=== PATIENT | female | born 1955 | race Caucasian/White ===

== ENCOUNTER 2016-05-15 17:03 | Inpatient (IN) | payer OTHER ==
[~2016-05-15] VITALS: Ht 172.7 cm; Wt 96.5 kg
[~2016-05-15 17:03] MED LIST: ACTOS15 MG PO; ADVAIR HFA120 INHALA IH; AMLODIPINE BESY10 MG PO; ASPIR 8181 M1 PO; ATORVASTATIN CA80 MG PO; Aspirin E.C. PO; BYSTOLIC10 MG PO; CILOSTAZOL50 MG PO; CLEOCIN300 MG PO; CLOPIDOGREL75 MG PO; CYANOCOBAL1000 MCG/2 IM; CYANOCOBALAM1000 MCG PO; DESYREL100 MG PO; EFFIENT10 MG PO; Ecotrin PO; Effient PO; FERROUS SULFAT325 MG PO; FOLIC ACID1 MG PO; FUROSEMIDE20 MG PO; FUROSEMIDE40 MG PO; Feosol PO; GABAPENTIN300 MG PO; IMDUR30 MG PO; IMDUR60 MG PO; Imdur PO; K-DUR20 MEQ PO; KEFLEX500 MG PO; KLOR-CON M2020 MEQ PO; LANTUS 10100 UNITS/ SC; LANTUS 3 M100 UNITS1 SC; LASIX20 MG PO; LASIX40 MG PO; LEVEMIR FL100 UNITS/ PO; LEVEMIR100 UNIT/2 SC; LIPITOR80 MG PO; LISINOPRIL10 MG PO; LISINOPRIL30 MG PO; LOPRESSOR25 MG PO; LOPRESSOR50 MG PO; LOW DOSE ASPIRI81 M1 PO; Lasix PO; Lipitor PO; Lopressor PO; METOCLOPRAMIDE H5 MG PO; METOPROLOL TART50 MG PO; MORPHINE SULFAT15 M1 PO; MS Contin,Oramorph S PO; MYCOSTATIN1 APPLICAT TP; NEURONTIN300 MG PO; NITROGLYCERIN0.4 MG SL; NITROSTAT0.4 MG SL; NOVOLOG 10100 UNITS/ SC; NOVOLOG MI100 UNIT/2 SQ; NOVOLOG PE100 UNITS/ SC; Nitrostat,NitroQuick SL; PANTOPRAZOLE SO40 MG PO; PIOGLITAZONE HC15 MG PO; PLAVIX75 MG PO; PROAIR HFA8.5 GM IH; PROVENTIL HFA6.7 GM IH; PROZAC40 MG PO; PROzac PO; Percocet 5/325,Endoc PO; Plavix PO; Proventil,Ventolin H IH; RANEXA500 MG PO; RANITIDINE HCL300 M1 PO; REGLAN5 MG PO; SENNA PLUS TAB1 EACH PO; SENNA8.6 MG PO; SPIRIVA RESPIMAT4 G1 IH; SPIRIVA RESPIMAT4 GM IH; TRAMADOL HCL50 MG PO; TRAZODONE HCL100 MG PO; TYLENOL REGULA325 MG PO; ULTRAM50 MG PO; Ultram PO; ZESTRIL,PRINIVI40 MG PO; ZESTRIL20 MG PO; ZOCOR80 M1 PO; ZOFRAN ODT8 MG PO; Zestril,Prinivil PO; [UNRECOGNIZED DRUG - OTHER] TP; [UNRECOGNIZED DRUG - REMARK]
[2016-05-15 18:00] LABS: EOSINOPHIL (%) 2.4 % (0-5); EOSINOPHIL COUNT 0.3 K/uL (0-0.3); IMMATURE GRANULOCYTE (%) 0.2 % (0.0-0.7); IMMATURE GRANULOCYTE COUNT 0.2 K/uL; LYMPHOCYTE COUNT 1.2 K/uL (1.0-2.8); MCH 28.9 PG (29.0-34.0); MCHC 32.1 G/DL (30.0-36.0); MEAN PLAT.VOLUME 9.5 uM^3 (9.5-12.4); MONOCYTE (%) 9.6 % (3-12); MONOCYTE COUNT 1.2 K/uL (0-0.8); NEUTROPHIL (%) 78.4 % (45-76); NEUTROPHIL COUNT 9.8 K/uL (1.8-6.4); PLATELET COUNT 386 K/uL (156-360); RBC DIS.WIDTH-CV 14.8 % (11.8-14.6); RED BLOOD COUNT 4.22 M/uL (3.80-5.20); WHITE BLOOD COUNT 12.5 K/uL (4.1-10.2)
[2016-05-15 18:06] LABS: CHLORIDE 101 mEq/L (99-109); SODIUM 138 mEq/L (136-147)
[2016-05-15 18:08] LABS: GLUCOSE 128 mg/dL (70-99)
[2016-05-15 18:09] LABS: ANION GAP 12 MEQ/L (2-14)
[2016-05-15 18:12] LABS: GFR ESTIMATE (CALCULATED) > 59 mL/min/; UREA NITROGEN (BUN) 10 mg/dL (9-23)
[2016-05-15] MEDS ORDERED: K-DUR20 MEQ PO (18:52)
[2016-05-15] MEDS ORDERED: IMDUR30 MG PO (18:52)
[2016-05-15] MEDS ORDERED: NOVOLOG PE100 UNITS/ SC (18:53)
[2016-05-15] MEDS ORDERED: FUROSEMIDE40 MG PO (18:53)
[2016-05-15 23:36] VITALS: BP 139/92
[2016-05-16 00:01] LABS: POINT-OF-CARE METER ID UU13113717
[2016-05-16 05:56] LABS: POINT-OF-CARE METER ID UU13113717
[2016-05-16 06:36] LABS: EOSINOPHIL (%) 3.1 % (0-5); EOSINOPHIL COUNT 0.4 K/uL (0-0.3); HEMATOCRIT 36.1 % (36.0-46.0); IMMATURE GRANULOCYTE (%) 0.3 % (0.0-0.7); LYMPHOCYTE COUNT 1.6 K/uL (1.0-2.8); MCH 28.9 PG (29.0-34.0); MCHC 31.6 G/DL (30.0-36.0); MCV 91.4 FL (83-99); MEAN PLAT.VOLUME 9.8 uM^3 (9.5-12.4); MONOCYTE (%) 8.8 % (3-12); NEUTROPHIL (%) 73.1 % (45-76); NEUTROPHIL COUNT 8.1 K/uL (1.8-6.4); PLATELET COUNT 323 K/uL (156-360); RBC DIS.WIDTH-CV 15.2 % (11.8-14.6); RED BLOOD COUNT 3.95 M/uL (3.80-5.20); WHITE BLOOD COUNT 11.1 K/uL (4.1-10.2)
[2016-05-16 07:04] LABS: ANION GAP 7 MEQ/L (2-14); C-REACTIVE PROTEIN 39.8 MG/L (0-10); CHLORIDE 101 MEQ/L (99-109); GFR ESTIMATE (CALCULATED) 53 mL/min/; GLUCOSE 108 mg/dL (70-99); POTASSIUM 3.9 MEQ/L (3.7-5.4); SAMPLE HEMOLYSIS CHECK 0; SAMPLE ICTERIC CHECK 0; SAMPLE LIPEMIA CHECK 0; SODIUM 135 MEQ/L (136-147); UREA NITROGEN (BUN) 13 mg/dL (9-23)
[2016-05-16 07:43] LABS: ERTH.SED.RATE 91 MM/HR (0-30)
[2016-05-16 08:16] VITALS: BP 143/67
[2016-05-16 08:56] VITALS: BP 143/67
[2016-05-16 15:43] VITALS: BP 151/62
[2016-05-16 17:12] LABS: POINT-OF-CARE METER ID UU13113725
[2016-05-16 21:14] LABS: POINT-OF-CARE METER ID UU13113717
[2016-05-16 23:15] VITALS: BP 148/67
[2016-05-17 05:48] LABS: POINT-OF-CARE METER ID UU13113725
[2016-05-17 08:27] LABS: POINT-OF-CARE METER ID UU13113696
[2016-05-17 08:29] VITALS: BP 233/98
[2016-05-17 09:08] LABS: POINT-OF-CARE METER ID UU13113696
[2016-05-17 11:00] LABS: POINT-OF-CARE METER ID UU13113819
[2016-05-17 15:06] LABS: POINT-OF-CARE METER ID UU13113819
[2016-05-17 15:40] VITALS: BP 221/106
[2016-05-17 16:34] LABS: POINT-OF-CARE METER ID UU13113725
[2016-05-17 21:11] LABS: POINT-OF-CARE METER ID UU13113725
[2016-05-17 22:57] VITALS: BP 136/100
[2016-05-18 06:06] LABS: POINT-OF-CARE METER ID UU13113717
[2016-05-18 08:00] VITALS: BP 162/91
[2016-05-18 11:49] LABS: POINT-OF-CARE METER ID UU13113725
[2016-05-18 16:00] VITALS: BP 181/79
[2016-05-18 16:07] LABS: POINT-OF-CARE METER ID UU13113717
[2016-05-18 20:43] LABS: POINT-OF-CARE METER ID UU13113717
[2016-05-18 23:20] VITALS: BP 169/81
[2016-05-19 05:48] LABS: POINT-OF-CARE METER ID UU13113717
[2016-05-19 08:30] VITALS: BP 166/101
[2016-05-19 11:38] LABS: POINT-OF-CARE METER ID UU13113717
[2016-05-19 11:52] VITALS: BP 200/115
[2016-05-19 13:50] VITALS: BP 198/93
[2016-05-19 15:51] LABS: POINT-OF-CARE METER ID UU13113717
[2016-05-19 16:15] VITALS: BP 155/89
[2016-05-19 17:55] VITALS: BP 177/80
[2016-05-19 18:44] LABS: VANCOMYCIN, TROUGH 25.3 MCG/ML (10-20)
[2016-05-20] VITALS: BP 122/74
[2016-05-20 06:42] LABS: HEMATOCRIT 31.6 % (36.0-46.0); MCV 90.8 FL (83-99); MEAN PLAT.VOLUME 9.7 uM^3 (9.5-12.4); PLATELET COUNT 332 K/uL (156-360); RBC DIS.WIDTH-CV 15.3 % (11.8-14.6); RBC DIS.WIDTH-SD 50.6 % (39-53); RED BLOOD COUNT 3.48 M/uL (3.80-5.20); WHITE BLOOD COUNT 10.7 K/uL (4.1-10.2)
[2016-05-20 07:15] LABS: ANION GAP 9 MEQ/L (2-14); CHLORIDE 103 MEQ/L (99-109); GFR ESTIMATE (CALCULATED) 53 mL/min/; GLUCOSE 56 mg/dL (70-99); MAGNESIUM 1.8 mg/dl (1.3-2.7); POTASSIUM 4.6 MEQ/L (3.7-5.4); SAMPLE HEMOLYSIS CHECK 0; SAMPLE ICTERIC CHECK 0; SAMPLE LIPEMIA CHECK 0; SODIUM 137 MEQ/L (136-147); UREA NITROGEN (BUN) 15 mg/dL (9-23)
[2016-05-20 07:24] LABS: VANCOMYCIN, TROUGH 21.1 MCG/ML (10-20)
[2016-05-20 08:11] VITALS: BP 146/78
[2016-05-20 11:23] LABS: POINT-OF-CARE METER ID UU13113725
[2016-05-20] MEDS ORDERED: AUGMENTIN875 MG PO (12:08)
[2016-05-20] MEDS ORDERED: BETADINE SOLUT480 ML TP (12:08)
== END 2016-05-20 15:33 | disposition home or self-care (01) | DRG 253 ==
LOC: EME → EDBD 17:03 → 5EAST 21:35 → EDOF 21:35 → 5EAST 23:04
PROVIDERS: Emergency Medicine; Hospitalist; Internal Medicine
PROC: 047M3ZZ Dilation of Right Popliteal Artery, Percutaneous Approach (ICD-10-PCS; principal; 2016-05-17)
PROC: 047P3ZZ Dilation of Right Anterior Tibial Artery, Percutaneous Approach (ICD-10-PCS; principal; 2016-05-17)
PROC: 047R3ZZ Dilation of Right Posterior Tibial Artery, Percutaneous Approach (ICD-10-PCS; principal; 2016-05-17)
DX: I70.261 Atherosclerosis of native arteries of extremities with gangrene, right leg (principal); M86.171 Other acute osteomyelitis, right ankle and foot; I50.30 Unspecified diastolic (congestive) heart failure; E11.52 Type 2 diabetes mellitus with diabetic peripheral angiopathy with gangrene; L03.031 Cellulitis of right toe; E11.40 Type 2 diabetes mellitus with diabetic neuropathy, unspecified; F32.9 Major depressive disorder, single episode, unspecified; J44.9 Chronic obstructive pulmonary disease, unspecified; E78.5 Hyperlipidemia, unspecified; I05.0 Rheumatic mitral stenosis; G89.4 Chronic pain syndrome; I25.2 Old myocardial infarction; L97.519 Non-pressure chronic ulcer of other part of right foot with unspecified severity; I27.2 Other secondary pulmonary hypertension; I35.0 Nonrheumatic aortic (valve) stenosis; I25.10 Atherosclerotic heart disease of native coronary artery without angina pectoris; Z89.512 Acquired absence of left leg below knee; G43.909 Migraine, unspecified, not intractable, without status migrainosus; Z85.528 Personal history of other malignant neoplasm of kidney; Z87.891 Personal history of nicotine dependence; Z95.5 Presence of coronary angioplasty implant and graft; Z89.421 Acquired absence of other right toe(s)
CPT/HCPCS: 73630; 80048; 80202; 82565; 82948; 83605; 83735; 84520; 85025; 85027; 85651; 86140; 87040; 94640 76; 94799; 99202; 99281; 99285; C1725; C1760; C1769; C1887; C1894; G0008; J0360; J0692; J1644; J1815; J1885; J2250; J2405; J2543; J2720; J3010; J3370; J7030; J7050; S0020

== ENCOUNTER 2016-05-27 21:13 | Emergency (ER) | payer OTHER ==
[~2016-05-27] VITALS: Ht 165.1 cm; Wt 94.5 kg
[~2016-05-27 21:13] MED LIST changes: +AUGMENTIN875 MG PO; +BETADINE SOLUT480 ML TP
[2016-05-27 23:51] VITALS: BP 178/50
== END 2016-05-27 23:53 | disposition home or self-care (01) ==
LOC: EME 21:13
DX: L24.9 Irritant contact dermatitis, unspecified cause (principal); E11.9 Type 2 diabetes mellitus without complications; E78.5 Hyperlipidemia, unspecified; I10 Essential (primary) hypertension; I25.2 Old myocardial infarction; Z89.411 Acquired absence of right great toe; Z88.2 Allergy status to sulfonamides
CPT/HCPCS: 99281; 99284

== ENCOUNTER 2016-05-29 12:02 | Inpatient (IN) | payer OTHER ==
[~2016-05-29] VITALS: Ht 172.7 cm; Wt 94.0 kg
[2016-05-29 12:44] LABS: HEMATOCRIT 33.9 % (36.0-46.0); MCH 29.5 PG (29.0-34.0); MCV 95.2 FL (83-99); MEAN PLAT.VOLUME 9.5 uM^3 (9.5-12.4); PLATELET COUNT 413 K/uL (156-360); RBC DIS.WIDTH-CV 17.5 % (11.8-14.6); RBC DIS.WIDTH-SD 55.6 % (39-53); RED BLOOD COUNT 3.56 M/uL (3.80-5.20); WHITE BLOOD COUNT 9.6 K/uL (4.1-10.2)
[2016-05-29 12:54] LABS: CHLORIDE 103 mEq/L (99-109); POTASSIUM 5.1 mEq/L (3.7-5.4); SODIUM 134 mEq/L (136-147)
[2016-05-29 12:56] LABS: GLUCOSE 215 mg/dL (70-99)
[2016-05-29 12:57] LABS: ANION GAP 11 MEQ/L (2-14)
[2016-05-29 13:00] LABS: GFR ESTIMATE (CALCULATED) 48 mL/min/
[2016-05-29 13:01] LABS: UREA NITROGEN (BUN) 11 mg/dL (9-23)
[2016-05-29 13:04] LABS: TROP-I INTERPRETATION POSITIVE
[2016-05-29 13:06] LABS: TROPONIN-I 0.66 ng/mL (0.0-0.30)
[2016-05-29] MEDS ORDERED: BETADINE SOLUT480 ML TP (13:47)
[2016-05-29] MEDS ORDERED: HYDROCODON-ACE1 EAC7 PO (13:48)
[2016-05-29 15:19] VITALS: BP 186/80
[2016-05-29 18:02] LABS: POINT-OF-CARE METER ID UU14174216
[2016-05-29 20:26] VITALS: BP 161/70
[2016-05-29 20:58] LABS: POINT-OF-CARE METER ID UU13113781
[2016-05-29 22:56] VITALS: BP 128/80
[2016-05-30 02:22] LABS: INTER. NORMALIZED RATIO 1.3; PROTHROMBIN TIME 13.3 (9.2-11.2)
[2016-05-30 02:28] LABS: TROP-I INTERPRETATION INDETERMINATE; TROPONIN-I 0.55 ng/mL (0.0-0.30)
[2016-05-30 03:38] VITALS: BP 152/67
[2016-05-30 08:40] VITALS: BP 172/88
[2016-05-30 11:02] VITALS: BP 161/74
[2016-05-30 11:13] LABS: POINT-OF-CARE METER ID UU13113698
[2016-05-30 15:30] VITALS: BP 130/69
[2016-05-30 16:18] LABS: POINT-OF-CARE METER ID UU13113698
[2016-05-30 19:48] VITALS: BP 132/83
[2016-05-30 21:21] LABS: POINT-OF-CARE METER ID UU13113781
[2016-05-31] VITALS: BP 144/72
[2016-05-31 04:00] VITALS: BP 154/81
[2016-05-31 06:26] LABS: MCH 29.2 PG (29.0-34.0); MCHC 30.6 G/DL (30.0-36.0); MCV 95.2 FL (83-99); PLATELET COUNT 340 K/uL (156-360); RBC DIS.WIDTH-CV 17.4 % (11.8-14.6); RBC DIS.WIDTH-SD 59.8 % (39-53); RED BLOOD COUNT 3.36 M/uL (3.80-5.20)
[2016-05-31 07:34] VITALS: BP 139/78
[2016-05-31 07:52] LABS: POINT-OF-CARE METER ID UU13113781
[2016-05-31 08:38] LABS: POTASSIUM 4.9 MEQ/L (3.7-5.4)
[2016-05-31 12:10] VITALS: BP 13/81; BP 130/81
[2016-05-31 12:32] LABS: POINT-OF-CARE METER ID UU13113781
[2016-05-31 15:00] VITALS: BP 136/79
[2016-05-31 16:30] LABS: POINT-OF-CARE METER ID UU13113781
[2016-05-31 20:00] VITALS: BP 131/87
[2016-06-01] VITALS: BP 140/81
[2016-06-01 04:00] VITALS: BP 134/80
[2016-06-01 08:01] LABS: POINT-OF-CARE METER ID UU13113698
[2016-06-01 09:00] VITALS: BP 168/71
[2016-06-01 11:32] LABS: ANION GAP 6 MEQ/L (2-14); CHLORIDE 99 MEQ/L (99-109); POTASSIUM 4.5 MEQ/L (3.7-5.4); SAMPLE HEMOLYSIS CHECK 0; SAMPLE ICTERIC CHECK 0; SAMPLE LIPEMIA CHECK 0; SODIUM 132 MEQ/L (136-147)
[2016-06-01 11:37] LABS: GFR ESTIMATE (CALCULATED) 53 mL/min/; GLUCOSE 157 mg/dL (70-99); UREA NITROGEN (BUN) 14 mg/dL (9-23)
[2016-06-01 12:10] LABS: POINT-OF-CARE METER ID UU13113698
[2016-06-01 15:26] VITALS: BP 118/71
[2016-06-01 17:00] LABS: POINT-OF-CARE METER ID UU14174216
[2016-06-01 20:00] VITALS: BP 150/66
[2016-06-02] VITALS: BP 129/73
[2016-06-02 04:00] VITALS: BP 135/76
[2016-06-02 08:21] LABS: POINT-OF-CARE METER ID UU13113781
[2016-06-02 08:37] VITALS: BP 178/80
[2016-06-02 09:19] LABS: HEMATOCRIT 34.1 % (36.0-46.0); MCH 29.4 PG (29.0-34.0); MCHC 31.4 G/DL (30.0-36.0); MCV 93.7 FL (83-99); MEAN PLAT.VOLUME 9.6 uM^3 (9.5-12.4); PLATELET COUNT 306 K/uL (156-360); RBC DIS.WIDTH-CV 16.7 % (11.8-14.6); RBC DIS.WIDTH-SD 57.4 % (39-53); RED BLOOD COUNT 3.64 M/uL (3.80-5.20); WHITE BLOOD COUNT 7.1 K/uL (4.1-10.2)
[2016-06-02 09:44] LABS: ANION GAP 6 MEQ/L (2-14); CHLORIDE 99 MEQ/L (99-109); GFR ESTIMATE (CALCULATED) 53 mL/min/; GLUCOSE 148 mg/dL (70-99); POTASSIUM 4.6 MEQ/L (3.7-5.4); SAMPLE HEMOLYSIS CHECK 0; SAMPLE ICTERIC CHECK 0; SAMPLE LIPEMIA CHECK 0; SODIUM 134 MEQ/L (136-147); UREA NITROGEN (BUN) 17 mg/dL (9-23)
[2016-06-02 11:48] LABS: POINT-OF-CARE METER ID UU13113781
[2016-06-02] MEDS ORDERED: AMLODIPINE BESY10 MG PO (11:55)
[2016-06-02] MEDS ORDERED: HYDROCHLOROTHIA25 MG PO (11:57)
[2016-06-02] MEDS ORDERED: VALSARTAN320 MG PO (11:59)
[2016-06-02 13:02] VITALS: BP 136/80
== END 2016-06-02 17:15 | disposition home or self-care (01) | DRG 280 ==
LOC: EME 12:02 → EDOF 13:14 → 4EAST 13:14 → EDOF 13:52 → 4EAST 15:07
PROVIDERS: Internal Medicine; Internal Medicine Cardiovascular Disease; Physician Assistant
DX: I21.4 Non-ST elevation (NSTEMI) myocardial infarction (principal); E87.1 Hypo-osmolality and hyponatremia; I16.1 Hypertensive emergency; I50.33 Acute on chronic diastolic (congestive) heart failure; I96 Gangrene, not elsewhere classified; L97.909 Non-pressure chronic ulcer of unspecified part of unspecified lower leg with unspecified severity; I25.10 Atherosclerotic heart disease of native coronary artery without angina pectoris; I11.0 Hypertensive heart disease with heart failure; E11.21 Type 2 diabetes mellitus with diabetic nephropathy; I45.10 Unspecified right bundle-branch block; I25.2 Old myocardial infarction; E78.5 Hyperlipidemia, unspecified; G89.29 Other chronic pain; F32.9 Major depressive disorder, single episode, unspecified; Z89.512 Acquired absence of left leg below knee; Z88.2 Allergy status to sulfonamides; Z95.5 Presence of coronary angioplasty implant and graft; Z79.4 Long term (current) use of insulin; I16.0 Hypertensive urgency; K59.00 Constipation, unspecified; I73.9 Peripheral vascular disease, unspecified; I27.2 Other secondary pulmonary hypertension; R05 Cough; I35.0 Nonrheumatic aortic (valve) stenosis
CPT/HCPCS: 71020; 80048; 82565; 82948; 83880; 84132; 84484; 84520; 85027; 85610; 85730; 93005; 93306; 94640; 94640 76; 94799; 99281; 99285; J1650; J1815; J1940

== ENCOUNTER 2016-06-12 09:21 | Day surgery (SDC) | payer OTHER ==
[~2016-06-12] VITALS: Ht 172.7 cm; Wt 93.0 kg
[~2016-06-12 09:21] MED LIST changes: +HYDROCHLOROTHIA25 MG PO; +HYDROCODON-ACE1 EAC7 PO; +VALSARTAN320 MG PO
[2016-06-12 10:30] VITALS: BP 143/89; BP 221/100
[2016-06-12 10:48] LABS: POINT-OF-CARE METER ID UU14174212
[2016-06-12 17:50] VITALS: BP 146/92
[2016-06-12 20:30] VITALS: BP 159/74
[2016-06-12 23:30] VITALS: BP 184/82
[2016-06-13 03:40] VITALS: BP 188/86
[2016-06-13 07:00] VITALS: BP 170/108
[2016-06-13] MEDS ORDERED: HYDROCODON-ACE1 EAC7 PO (09:15)
[2016-06-13 11:37] VITALS: BP 160/90
== END 2016-06-13 15:05 | disposition home or self-care (01) ==
LOC: SDC 09:21 → 2SOUTH 15:06 → 2EAST 15:06 → SDC 15:24 → 2EAST 17:38
PROVIDERS: Surgery
PROC: 0Y6M0Z7 Detachment at Right Foot, Complete 4th Ray, Open Approach (ICD-10-PCS; principal; 2016-06-12)
DX: E11.52 Type 2 diabetes mellitus with diabetic peripheral angiopathy with gangrene (principal); M86.171 Other acute osteomyelitis, right ankle and foot; I70.261 Atherosclerosis of native arteries of extremities with gangrene, right leg; R11.2 Nausea with vomiting, unspecified; E11.42 Type 2 diabetes mellitus with diabetic polyneuropathy; E11.622 Type 2 diabetes mellitus with other skin ulcer; L97.419 Non-pressure chronic ulcer of right heel and midfoot with unspecified severity; Z79.01 Long term (current) use of anticoagulants; Z79.02 Long term (current) use of antithrombotics/antiplatelets; Z99.3 Dependence on wheelchair; I10 Essential (primary) hypertension; I25.2 Old myocardial infarction; E78.5 Hyperlipidemia, unspecified; Z79.891 Long term (current) use of opiate analgesic; K21.9 Gastro-esophageal reflux disease without esophagitis; E66.9 Obesity, unspecified; Z89.512 Acquired absence of left leg below knee; Z87.891 Personal history of nicotine dependence; Z83.3 Family history of diabetes mellitus; Z82.49 Family history of ischemic heart disease and other diseases of the circulatory system; Z80.3 Family history of malignant neoplasm of breast; Z80.8 Family history of malignant neoplasm of other organs or systems; Z79.4 Long term (current) use of insulin
CPT/HCPCS: 82948; 88305; 88311; 94640; 94640 76; 99202; G0378; J0330; J0690; J1100; J1170; J1650; J1815; J2250; J2270; J2405; J3010; J7120

== ENCOUNTER 2016-06-20 21:51 | Inpatient (IN) | payer OTHER ==
[~2016-06-20] VITALS: Ht 172.7 cm; Wt 83.0 kg
[2016-06-20 23:19] LABS: HEMATOCRIT 34.9 % (36.0-46.0); MCH 28.6 PG (29.0-34.0); MCHC 32.7 G/DL (30.0-36.0); MCV 87.5 FL (83-99); MEAN PLAT.VOLUME 9.2 uM^3 (9.5-12.4); PLATELET COUNT 546 K/uL (156-360); RBC DIS.WIDTH-CV 14.2 % (11.8-14.6); RBC DIS.WIDTH-SD 44.8 % (39-53); RED BLOOD COUNT 3.99 M/uL (3.80-5.20); WHITE BLOOD COUNT 17.4 K/uL (4.1-10.2)
[2016-06-20 23:24] LABS: CHLORIDE 99 mEq/L (99-109); POTASSIUM 3.5 mEq/L (3.7-5.4); SODIUM 133 mEq/L (136-147)
[2016-06-20 23:26] LABS: GLUCOSE 282 mg/dL (70-99)
[2016-06-20 23:27] LABS: ANION GAP 12 MEQ/L (2-14)
[2016-06-20 23:29] LABS: GFR ESTIMATE (CALCULATED) 37 mL/min/
[2016-06-20 23:30] LABS: UREA NITROGEN (BUN) 15 mg/dL (9-23)
[2016-06-21] MEDS ORDERED: AMLODIPINE BESYL5 MG PO (00:54)
[2016-06-21] MEDS ORDERED: VALSARTAN320 MG PO (00:54)
[2016-06-21] MEDS ORDERED: METOCLOPRAMIDE H5 MG PO ×2 (00:55→00:56)
[2016-06-21] MEDS ORDERED: FUROSEMIDE40 MG PO (00:55)
[2016-06-21] MEDS ORDERED: ULTRAM50 MG PO (00:57)
[2016-06-21] MEDS ORDERED: CLINDAMYCIN HC300 MG PO (00:57)
[2016-06-21 03:32] VITALS: BP 98/64
[2016-06-21 09:06] VITALS: BP 102/64
[2016-06-21 11:03] LABS: ANION GAP 11 MEQ/L (2-14); CHLORIDE 99 MEQ/L (99-109); GFR ESTIMATE (CALCULATED) 37 mL/min/; GLUCOSE 255 mg/dL (70-99); POTASSIUM 3.6 MEQ/L (3.7-5.4); SAMPLE HEMOLYSIS CHECK 0; SAMPLE ICTERIC CHECK 0; SAMPLE LIPEMIA CHECK 0; SODIUM 134 MEQ/L (136-147); UREA NITROGEN (BUN) 19 mg/dL (9-23)
[2016-06-21 11:21] LABS: HEMATOCRIT 28.5 % (36.0-46.0); MCH 28.6 PG (29.0-34.0); MCHC 32.6 G/DL (30.0-36.0); MCV 87.7 FL (83-99); MEAN PLAT.VOLUME 9.9 uM^3 (9.5-12.4); PLATELET COUNT 407 K/uL (156-360); RBC DIS.WIDTH-CV 14.6 % (11.8-14.6); RED BLOOD COUNT 3.25 M/uL (3.80-5.20); WHITE BLOOD COUNT 13.5 K/uL (4.1-10.2)
[2016-06-21 11:53] LABS: POINT-OF-CARE METER ID UU13113725
[2016-06-21 16:14] VITALS: BP 92/60
[2016-06-21 17:14] LABS: MAGNESIUM 1.5 mg/dl (1.3-2.7)
[2016-06-22 07:23] VITALS: BP 95/58
[2016-06-22 11:52] LABS: POINT-OF-CARE METER ID UU13113725
[2016-06-22 15:48] VITALS: BP 130/61
[2016-06-22 16:38] LABS: POINT-OF-CARE METER ID UU13113725
[2016-06-22 21:38] LABS: POINT-OF-CARE METER ID UU13113725
[2016-06-22 23:01] VITALS: BP 130/64
[2016-06-23 06:58] LABS: ANION GAP 5 MEQ/L (2-14); CHLORIDE 104 MEQ/L (99-109); GFR ESTIMATE (CALCULATED) 40 mL/min/; GLUCOSE 167 mg/dL (70-99); MAGNESIUM 1.6 mg/dl (1.3-2.7); SAMPLE HEMOLYSIS CHECK 0; SAMPLE ICTERIC CHECK 0; SAMPLE LIPEMIA CHECK 0; SODIUM 133 MEQ/L (136-147); UREA NITROGEN (BUN) 19 mg/dL (9-23)
[2016-06-23 06:59] LABS: POTASSIUM 4.9 MEQ/L (3.7-5.4)
[2016-06-23 07:21] LABS: HEMATOCRIT 22.3 % (36.0-46.0); MCH 28.2 PG (29.0-34.0); MCHC 31.4 G/DL (30.0-36.0); MCV 89.9 FL (83-99); MEAN PLAT.VOLUME 9.3 uM^3 (9.5-12.4); PLATELET COUNT 332 K/uL (156-360); RBC DIS.WIDTH-CV 15.1 % (11.8-14.6); RBC DIS.WIDTH-SD 49.4 % (39-53); WHITE BLOOD COUNT 11.3 K/uL (4.1-10.2)
[2016-06-23 07:23] LABS: RED BLOOD COUNT 2.48 M/uL (3.80-5.20)
[2016-06-23 08:00] VITALS: BP 114/67
[2016-06-23 14:21] VITALS: BP 110/51
[2016-06-23 22:30] VITALS: BP 172/74
[2016-06-24 03:16] LABS: VANCOMYCIN, TROUGH 17.8 MCG/ML (10-20)
[2016-06-24 05:49] LABS: POINT-OF-CARE METER ID UU13113725
[2016-06-24 07:43] VITALS: BP 130/76
[2016-06-24 08:00] VITALS: BP 128/88
[2016-06-24 08:32] LABS: HEMATOCRIT 29.4 % (36.0-46.0); MCH 28.7 PG (29.0-34.0); MCV 89.9 FL (83-99); MEAN PLAT.VOLUME 9.3 uM^3 (9.5-12.4); PLATELET COUNT 352 K/uL (156-360); RBC DIS.WIDTH-CV 15.1 % (11.8-14.6); RBC DIS.WIDTH-SD 49.2 % (39-53); WHITE BLOOD COUNT 13.2 K/uL (4.1-10.2)
[2016-06-24 08:36] LABS: ALKALINE PHOSPHATASE 110 IU/L (3-129); ANION GAP 7 MEQ/L (2-14); CHLORIDE 106 MEQ/L (99-109); GFR ESTIMATE (CALCULATED) 40 mL/min/; GLUCOSE 113 mg/dL (70-99); POTASSIUM 4.9 MEQ/L (3.7-5.4); PREALBUMIN 7.3 mg/dL (10-40); SAMPLE HEMOLYSIS CHECK 0; SAMPLE ICTERIC CHECK 0; SAMPLE LIPEMIA CHECK 0; SODIUM 136 MEQ/L (136-147); TOTAL BILIRUBIN 0.3 MG/DL (0.0-1.0); UREA NITROGEN (BUN) 18 mg/dL (9-23)
[2016-06-24 08:55] LABS: RED BLOOD COUNT 3.27 M/uL (3.80-5.20)
[2016-06-24 11:34] LABS: POINT-OF-CARE METER ID UU13113725
[2016-06-24 14:32] LABS: POINT-OF-CARE METER ID UU13113675
[2016-06-24 16:41] VITALS: BP 134/89
[2016-06-24 23:01] VITALS: BP 150/74
[2016-06-25 06:51] LABS: EOSINOPHIL (%) 4.8 % (0-5); EOSINOPHIL COUNT 0.6 K/uL (0-0.3); HEMATOCRIT 25.2 % (36.0-46.0); IMMATURE GRANULOCYTE (%) 0.5 % (0.0-0.7); IMMATURE GRANULOCYTE COUNT 0.1 K/uL; LYMPHOCYTE COUNT 1.5 K/uL (1.0-2.8); MCH 28.5 PG (29.0-34.0); MCHC 31.7 G/DL (30.0-36.0); MCV 89.7 FL (83-99); MEAN PLAT.VOLUME 9.3 uM^3 (9.5-12.4); MONOCYTE (%) 5.4 % (3-12); MONOCYTE COUNT 0.7 K/uL (0-0.8); NEUTROPHIL (%) 77.6 % (45-76); NEUTROPHIL COUNT 9.9 K/uL (1.8-6.4); PLATELET COUNT 329 K/uL (156-360); RBC DIS.WIDTH-SD 49.1 % (39-53); RED BLOOD COUNT 2.81 M/uL (3.80-5.20); WHITE BLOOD COUNT 12.8 K/uL (4.1-10.2)
[2016-06-25 07:15] LABS: ANION GAP 7 MEQ/L (2-14); CHLORIDE 110 MEQ/L (99-109); GFR ESTIMATE (CALCULATED) 37 mL/min/; GLUCOSE 90 mg/dL (70-99); IRON 28 MCG/DL (35-150); POTASSIUM 4.8 MEQ/L (3.7-5.4); SAMPLE HEMOLYSIS CHECK 0; SAMPLE ICTERIC CHECK 0; SAMPLE LIPEMIA CHECK 0; SODIUM 137 MEQ/L (136-147); UREA NITROGEN (BUN) 15 mg/dL (9-23)
[2016-06-25 09:00] VITALS: BP 168/68
[2016-06-25 11:56] LABS: POINT-OF-CARE METER ID UU13113725
[2016-06-25 16:00] VITALS: BP 116/63
[2016-06-25 16:12] LABS: POINT-OF-CARE METER ID UU13113725
[2016-06-25 22:44] VITALS: BP 141/79
[2016-06-26 07:11] VITALS: BP 118/62
[2016-06-26 10:47] VITALS: BP 118/62
[2016-06-26 15:45] LABS: EOSINOPHIL (%) 3.4 % (0-5); EOSINOPHIL COUNT 0.6 K/uL (0-0.3); HEMATOCRIT 21.2 % (36.0-46.0); IMMATURE GRANULOCYTE (%) 0.8 % (0.0-0.7); IMMATURE GRANULOCYTE COUNT 0.1 K/uL; LYMPHOCYTE COUNT 1.2 K/uL (1.0-2.8); MCH 28.6 PG (29.0-34.0); MCHC 31.6 G/DL (30.0-36.0); MCV 90.6 FL (83-99); MEAN PLAT.VOLUME 9.2 uM^3 (9.5-12.4); MONOCYTE (%) 5.3 % (3-12); MONOCYTE COUNT 0.9 K/uL (0-0.8); NEUTROPHIL (%) 83.4 % (45-76); NEUTROPHIL COUNT 14.2 K/uL (1.8-6.4); PLATELET COUNT 368 K/uL (156-360); RBC DIS.WIDTH-CV 15.3 % (11.8-14.6); RBC DIS.WIDTH-SD 49.9 % (39-53); RED BLOOD COUNT 2.34 M/uL (3.80-5.20)
[2016-06-26 16:03] LABS: ANION GAP 7 MEQ/L (2-14); CHLORIDE 114 MEQ/L (99-109); POTASSIUM 5.3 MEQ/L (3.7-5.4); SAMPLE HEMOLYSIS CHECK 0; SAMPLE ICTERIC CHECK 0; SAMPLE LIPEMIA CHECK 0; SODIUM 138 MEQ/L (136-147)
[2016-06-26 16:09] LABS: GFR ESTIMATE (CALCULATED) 48 mL/min/; GLUCOSE 104 mg/dL (70-99); UREA NITROGEN (BUN) 11 mg/dL (9-23)
[2016-06-26 16:14] LABS: TROP-I INTERPRETATION NEGATIVE; TROPONIN-I 0.05 ng/mL (0.0-0.30)
[2016-06-26 19:55] VITALS: BP 132/60
[2016-06-26 23:06] VITALS: BP 104/65
[2016-06-26 23:20] LABS: POINT-OF-CARE METER ID UU13113725
[2016-06-27] VITALS (7 sets, daily range): BP systolic 87–151; BP diastolic 56–85
[2016-06-27 06:07] LABS: POINT-OF-CARE METER ID UU13113725
[2016-06-27 07:13] LABS: EOSINOPHIL COUNT 0.2 K/uL (0-0.3); HEMATOCRIT 27.9 % (36.0-46.0); IMMATURE GRANULOCYTE (%) 0.6 % (0.0-0.7); IMMATURE GRANULOCYTE COUNT 0.1 K/uL; LYMPHOCYTE COUNT 1.4 K/uL (1.0-2.8); MCH 29.2 PG (29.0-34.0); MCHC 32.3 G/DL (30.0-36.0); MCV 90.6 FL (83-99); MEAN PLAT.VOLUME 9.2 uM^3 (9.5-12.4); MONOCYTE (%) 7.1 % (3-12); MONOCYTE COUNT 1.5 K/uL (0-0.8); NEUTROPHIL (%) 84.6 % (45-76); NEUTROPHIL COUNT 17.7 K/uL (1.8-6.4); PLATELET COUNT 370 K/uL (156-360); RBC DIS.WIDTH-CV 15.9 % (11.8-14.6); RBC DIS.WIDTH-SD 51.3 % (39-53); WHITE BLOOD COUNT 20.9 K/uL (4.1-10.2)
[2016-06-27 07:15] LABS: RED BLOOD COUNT 3.08 M/uL (3.80-5.20)
[2016-06-27 07:36] LABS: TROP-I INTERPRETATION NEGATIVE; TROPONIN-I 0.08 ng/mL (0.0-0.30)
[2016-06-27 07:47] LABS: ANION GAP 9 MEQ/L (2-14); CHLORIDE 111 MEQ/L (99-109); GFR ESTIMATE (CALCULATED) 48 mL/min/; GLUCOSE 107 mg/dL (70-99); POTASSIUM 4.9 MEQ/L (3.7-5.4); SAMPLE HEMOLYSIS CHECK 0; SAMPLE ICTERIC CHECK 0; SAMPLE LIPEMIA CHECK 0; SODIUM 137 MEQ/L (136-147); UREA NITROGEN (BUN) 13 mg/dL (9-23)
[2016-06-27 07:49] LABS: VANCOMYCIN, TROUGH 28.6 MCG/ML (10-20)
[2016-06-27 16:21] LABS: POINT-OF-CARE METER ID UU13113725
[2016-06-27 20:54] LABS: POINT-OF-CARE METER ID UU13113725
[2016-06-28 00:35] VITALS: BP 124/58
[2016-06-28 06:24] LABS: NRBC (%) 0.3 /100 WBC (0-0)
[2016-06-28 06:36] LABS: EOSINOPHIL (%) 1.9 % (0-5); EOSINOPHIL COUNT 0.3 K/uL (0-0.3); HEMATOCRIT 24.7 % (36.0-46.0); IMMATURE GRANULOCYTE (%) 0.6 % (0.0-0.7); IMMATURE GRANULOCYTE COUNT 0.1 K/uL; LYMPHOCYTE COUNT 0.9 K/uL (1.0-2.8); MCH 29.5 PG (29.0-34.0); MCHC 32.8 G/DL (30.0-36.0); MCV 89.8 FL (83-99); MEAN PLAT.VOLUME 9.2 uM^3 (9.5-12.4); MONOCYTE (%) 10.5 % (3-12); MONOCYTE COUNT 1.5 K/uL (0-0.8); NEUTROPHIL (%) 80.9 % (45-76); NEUTROPHIL COUNT 11.6 K/uL (1.8-6.4); PLATELET COUNT 321 K/uL (156-360); RBC DIS.WIDTH-CV 16.3 % (11.8-14.6); RBC DIS.WIDTH-SD 52.3 % (39-53); RED BLOOD COUNT 2.75 M/uL (3.80-5.20)
[2016-06-28 06:49] LABS: ANION GAP 6 MEQ/L (2-14); CHLORIDE 110 MEQ/L (99-109); GFR ESTIMATE (CALCULATED) 37 mL/min/; POTASSIUM 4.7 MEQ/L (3.7-5.4); SAMPLE HEMOLYSIS CHECK 0; SAMPLE ICTERIC CHECK 0; SAMPLE LIPEMIA CHECK 0; SODIUM 136 MEQ/L (136-147); UREA NITROGEN (BUN) 14 mg/dL (9-23)
[2016-06-28 06:56] LABS: WHITE BLOOD COUNT 14.4 K/uL (4.1-10.2)
[2016-06-28 07:00] LABS: GLUCOSE 164 mg/dL (70-99); VANCOMYCIN, TROUGH 22.7 MCG/ML (10-20)
[2016-06-28 09:22] VITALS: BP 116/62
[2016-06-28 11:36] VITALS: BP 110/64
[2016-06-28 11:40] LABS: POINT-OF-CARE METER ID UU13113725
[2016-06-28 17:07] VITALS: BP 101/55
[2016-06-28 20:16] VITALS: BP 92/59
[2016-06-28 23:01] VITALS: BP 120/78
[2016-06-29 06:59] LABS: HEMATOCRIT 24.6 % (36.0-46.0); MCH 29.5 PG (29.0-34.0); MCHC 32.9 G/DL (30.0-36.0); MCV 89.5 FL (83-99); MEAN PLAT.VOLUME 9.1 uM^3 (9.5-12.4); NRBC (%) 0.2 /100 WBC (0-0); PLATELET COUNT 332 K/uL (156-360); RBC DIS.WIDTH-CV 16.4 % (11.8-14.6); RBC DIS.WIDTH-SD 51.7 % (39-53); RED BLOOD COUNT 2.75 M/uL (3.80-5.20); WHITE BLOOD COUNT 13.7 K/uL (4.1-10.2)
[2016-06-29 07:21] LABS: ANION GAP 8 MEQ/L (2-14); CHLORIDE 111 MEQ/L (99-109); GFR ESTIMATE (CALCULATED) 37 mL/min/; GLUCOSE 179 mg/dL (70-99); POTASSIUM 4.3 MEQ/L (3.7-5.4); SAMPLE HEMOLYSIS CHECK 0; SAMPLE ICTERIC CHECK 0; SAMPLE LIPEMIA CHECK 0; SODIUM 137 MEQ/L (136-147); UREA NITROGEN (BUN) 12 mg/dL (9-23)
[2016-06-29 07:27] LABS: EOSINOPHIL (%) 3.1 % (0-5); EOSINOPHIL COUNT 0.4 K/uL (0-0.3); IMMATURE GRANULOCYTE (%) 0.3 % (0.0-0.7); MONOCYTE (%) 8.6 % (3-12); MONOCYTE COUNT 1.2 K/uL (0-0.8); NEUTROPHIL (%) 80.9 % (45-76); NEUTROPHIL COUNT 11.1 K/uL (1.8-6.4)
[2016-06-29 07:43] VITALS: BP 140/100
[2016-06-29 11:52] LABS: POINT-OF-CARE METER ID UU13113725
[2016-06-29 13:01] LABS: TROP-I INTERPRETATION POSITIVE
[2016-06-29 13:04] LABS: TROPONIN-I 0.88 ng/mL (0.0-0.30)
[2016-06-29 16:31] LABS: POINT-OF-CARE METER ID UU14174216
[2016-06-29 16:37] LABS: INTER. NORMALIZED RATIO 1.3; PROTHROMBIN TIME 13.4 (9.2-11.2)
[2016-06-29 19:25] LABS: BASE EXCESS -10.9 mEq/L (-3 to +3); BICARBONATE 13.7 mEq/L (22-26); CARBOXY HGB 2.1 % (0-5); COMMENTS - BLOOD GASES A+C+; DEVICE NC; METHEMOGLOBIN 1.7 % (0-1.5); O2 FLOW 6 L/MIN; PCO2 26 mm Hg (35-45); PO2 78 mm Hg (80-100); SITE RR; TOTAL RESP RATE 25 resp/min; pH 7.33 (7.35-7.45)
[2016-06-29 19:53] LABS: MCV 90.4 FL (83-99)
[2016-06-29 19:58] VITALS: BP 159/89
[2016-06-29 20:09] LABS: TROP-I INTERPRETATION POSITIVE
[2016-06-29 20:10] LABS: TROPONIN-I 2.27 ng/mL (0.0-0.30)
[2016-06-29 20:15] LABS: CHLORIDE 111 mEq/L (99-109); SODIUM 135 mEq/L (136-147)
[2016-06-29 20:16] LABS: GLUCOSE 225 mg/dL (70-99)
[2016-06-29 20:18] LABS: ANION GAP 8 MEQ/L (2-14)
[2016-06-29 20:20] LABS: GFR ESTIMATE (CALCULATED) 37 mL/min/
[2016-06-29 20:21] LABS: UREA NITROGEN (BUN) 13 mg/dL (9-23)
[2016-06-29 20:58] VITALS: BP 156/109
[2016-06-29 21:06] LABS: POINT-OF-CARE METER ID UU14174216
[2016-06-29 21:45] VITALS: BP 122/85
[2016-06-29 22:00] VITALS: BP 147/106
[2016-06-29 23:00] VITALS: BP 129/81
[2016-06-30] VITALS (28 sets, daily range): BP systolic 83–138; BP diastolic 55–100
[2016-06-30 00:01] LABS: METH RESISTANT S AUREUS PCR NEGATIVE (NEGATIVE)
[2016-06-30 00:18] LABS: ADD MIUA? YES; BILIRUBIN NEGATIVE; BLOOD MODERATE; COLOR YELLOW ((YELLOW)); GLUCOSE (STRIP) NEGATIVE; KETONES NEGATIVE; LEUKOCYTES NEGATIVE; NITRITE NEGATIVE; PROTEIN (STRIP) 100; SPECIFIC GRAVITY 1.008 (1.000-1.030); UROBILINOGEN 0.2 MG/DL (0.2-1.0)
[2016-06-30 00:29] LABS: PROBE CHECK PASS; SPECIMEN PROCESSING CONTROL PASS
[2016-06-30 00:48] LABS: BACTERIA 2+ /HPF; EPITHELIAL CELLS RARE /HPF; MUCUS TRACE /LPF; RED BLOOD CELLS 0-5 /HPF (0-5); WHITE BLOOD CELLS 0-5 /HPF (0-5)
[2016-06-30 06:18] LABS: POINT-OF-CARE METER ID UU14162636; POINT-OF-CARE USER ID RADDRS44
[2016-06-30 06:21] LABS: HEMATOCRIT 24.3 % (36.0-46.0); MCH 28.8 PG (29.0-34.0); MCHC 32.1 G/DL (30.0-36.0); MCV 89.7 FL (83-99); MEAN PLAT.VOLUME 9.4 uM^3 (9.5-12.4); PLATELET COUNT 321 K/uL (156-360); RBC DIS.WIDTH-CV 16.9 % (11.8-14.6); RBC DIS.WIDTH-SD 52.5 % (39-53); RED BLOOD COUNT 2.71 M/uL (3.80-5.20)
[2016-06-30 06:23] LABS: WHITE BLOOD COUNT 20.8 K/uL (4.1-10.2)
[2016-06-30 06:39] LABS: TROP-I INTERPRETATION POSITIVE
[2016-06-30 06:48] LABS: TROPONIN-I 4.26 ng/mL (0.0-0.30)
[2016-06-30 07:14] LABS: ANION GAP 8 MEQ/L (2-14); CHLORIDE 110 MEQ/L (99-109); CREATINE KINASE 183 IU/L (1-294); GFR ESTIMATE (CALCULATED) 40 mL/min/; GLUCOSE 199 mg/dL (70-99); POTASSIUM 4.6 MEQ/L (3.7-5.4); SAMPLE HEMOLYSIS CHECK 0; SAMPLE ICTERIC CHECK 0; SAMPLE LIPEMIA CHECK 0; SODIUM 136 MEQ/L (136-147); TOTAL BILIRUBIN 0.3 MG/DL (0.0-1.0); TOTAL CK 183 IU/L (1-294); UREA NITROGEN (BUN) 14 mg/dL (9-23)
[2016-06-30 07:16] LABS: ALKALINE PHOSPHATASE 66 IU/L (3-129); CK-MB 9.1 ng/mL (0.0-4.9)
[2016-06-30 11:49] LABS: POINT-OF-CARE METER ID UU13113803
[2016-06-30 12:13] LABS: CREATINE KINASE 149 IU/L (1-294); TOTAL CK 149 IU/L (1-294)
[2016-06-30 12:15] LABS: TROP-I INTERPRETATION POSITIVE
[2016-06-30 12:23] LABS: TROPONIN-I 3.52 ng/mL (0.0-0.30)
[2016-06-30 12:42] LABS: CK-MB 5.8 ng/mL (0.0-4.9)
[2016-06-30 17:44] LABS: POINT-OF-CARE METER ID UU14162636
[2016-06-30 20:16] LABS: CREATINE KINASE 174 IU/L (1-294); TOTAL CK 174 IU/L (1-294)
[2016-06-30 20:20] LABS: TROP-I INTERPRETATION POSITIVE
[2016-06-30 20:28] LABS: TROPONIN-I 3.58 ng/mL (0.0-0.30)
[2016-06-30 21:12] LABS: CK-MB 3.3 ng/mL (0.0-4.9)
[2016-07-01] VITALS (26 sets, daily range): BP systolic 89–127; BP diastolic 53–91
[2016-07-01 00:06] LABS: POINT-OF-CARE METER ID UU14162636; POINT-OF-CARE USER ID RADDRS44
[2016-07-01 00:42] LABS: POINT-OF-CARE METER ID UU14162636; POINT-OF-CARE USER ID RADDRS44
[2016-07-01 05:06] LABS: POINT-OF-CARE METER ID UU14162636
[2016-07-01 06:28] LABS: ANION GAP 6 MEQ/L (2-14); CHLORIDE 108 MEQ/L (99-109); MCH 29.6 PG (29.0-34.0); MCHC 34.1 G/DL (30.0-36.0); MCV 86.6 FL (83-99); MEAN PLAT.VOLUME 9.6 uM^3 (9.5-12.4); PLATELET COUNT 308 K/uL (156-360); RBC DIS.WIDTH-CV 17.2 % (11.8-14.6); RBC DIS.WIDTH-SD 50.8 % (39-53); RED BLOOD COUNT 3.35 M/uL (3.80-5.20); SAMPLE HEMOLYSIS CHECK 0; SAMPLE ICTERIC CHECK 0; SAMPLE LIPEMIA CHECK 0; SODIUM 138 MEQ/L (136-147); WHITE BLOOD COUNT 14.6 K/uL (4.1-10.2)
[2016-07-01 06:33] LABS: TOTAL BILIRUBIN 0.5 MG/DL (0.0-1.0)
[2016-07-01 06:34] LABS: ALKALINE PHOSPHATASE 71 IU/L (3-129); GFR ESTIMATE (CALCULATED) 40 mL/min/; UREA NITROGEN (BUN) 16 mg/dL (9-23)
[2016-07-01 06:35] LABS: GLUCOSE 96 mg/dL (70-99)
[2016-07-01 16:09] LABS: ANION GAP 8 MEQ/L (2-14); CHLORIDE 109 MEQ/L (99-109); GFR ESTIMATE (CALCULATED) 37 mL/min/; GLUCOSE 136 mg/dL (70-99); POTASSIUM 5.3 MEQ/L (3.7-5.4); SAMPLE HEMOLYSIS CHECK 2; SAMPLE ICTERIC CHECK 0; SAMPLE LIPEMIA CHECK 0; SODIUM 138 MEQ/L (136-147); UREA NITROGEN (BUN) 17 mg/dL (9-23)
[2016-07-01 18:12] LABS: POINT-OF-CARE METER ID UU14162636
[2016-07-02] VITALS (20 sets, daily range): BP systolic 93–155; BP diastolic 52–65
[2016-07-02 05:25] LABS: POINT-OF-CARE USER ID LABHNS84
[2016-07-02 05:48] LABS: MCH 28.8 PG (29.0-34.0); MCHC 32.6 G/DL (30.0-36.0); MCV 88.2 FL (83-99); MEAN PLAT.VOLUME 9.9 uM^3 (9.5-12.4); PLATELET COUNT 252 K/uL (156-360); RBC DIS.WIDTH-CV 18.3 % (11.8-14.6); RED BLOOD COUNT 3.06 M/uL (3.80-5.20); WHITE BLOOD COUNT 10.3 K/uL (4.1-10.2)
[2016-07-02 06:19] LABS: ANION GAP 9 MEQ/L (2-14); CHLORIDE 107 MEQ/L (99-109); GFR ESTIMATE (CALCULATED) 40 mL/min/; GLUCOSE 147 mg/dL (70-99); MAGNESIUM 1.4 mg/dl (1.3-2.7); SAMPLE HEMOLYSIS CHECK 0; SAMPLE ICTERIC CHECK 0; SAMPLE LIPEMIA CHECK 0; SODIUM 141 MEQ/L (136-147); UREA NITROGEN (BUN) 19 mg/dL (9-23)
[2016-07-02 06:22] LABS: POTASSIUM 3.4 MEQ/L (3.7-5.4)
[2016-07-03] VITALS (15 sets, daily range): BP systolic 124–199; BP diastolic 53–89
[2016-07-03 08:31] LABS: MCH 28.8 PG (29.0-34.0); MCHC 32.4 G/DL (30.0-36.0); MEAN PLAT.VOLUME 9.5 uM^3 (9.5-12.4); PLATELET COUNT 278 K/uL (156-360); RBC DIS.WIDTH-CV 17.9 % (11.8-14.6); RBC DIS.WIDTH-SD 54.1 % (39-53); RED BLOOD COUNT 3.26 M/uL (3.80-5.20); WHITE BLOOD COUNT 11.2 K/uL (4.1-10.2)
[2016-07-03 08:51] LABS: ANION GAP 7 MEQ/L (2-14); CHLORIDE 108 MEQ/L (99-109); GFR ESTIMATE (CALCULATED) 48 mL/min/; GLUCOSE 305 mg/dL (70-99); MAGNESIUM 1.6 mg/dl (1.3-2.7); SAMPLE HEMOLYSIS CHECK 0; SAMPLE ICTERIC CHECK 0; SAMPLE LIPEMIA CHECK 0; SODIUM 140 MEQ/L (136-147); UREA NITROGEN (BUN) 23 mg/dL (9-23)
[2016-07-04] VITALS (20 sets, daily range): BP systolic 103–189; BP diastolic 52–88
[2016-07-04 05:26] LABS: POINT-OF-CARE METER ID UU13113803
[2016-07-04 05:51] LABS: HEMATOCRIT 27.5 % (36.0-46.0); MCH 29.1 PG (29.0-34.0); MCHC 32.4 G/DL (30.0-36.0); MCV 89.9 FL (83-99); MEAN PLAT.VOLUME 9.8 uM^3 (9.5-12.4); PLATELET COUNT 274 K/uL (156-360); RBC DIS.WIDTH-CV 18.1 % (11.8-14.6); RBC DIS.WIDTH-SD 58.4 % (39-53); RED BLOOD COUNT 3.06 M/uL (3.80-5.20)
[2016-07-04 06:38] LABS: ANION GAP 8 MEQ/L (2-14); CHLORIDE 112 MEQ/L (99-109); GFR ESTIMATE (CALCULATED) 48 mL/min/; POTASSIUM 4.4 MEQ/L (3.7-5.4); SAMPLE HEMOLYSIS CHECK 0; SAMPLE ICTERIC CHECK 0; SAMPLE LIPEMIA CHECK 0; SODIUM 141 MEQ/L (136-147); UREA NITROGEN (BUN) 24 mg/dL (9-23)
[2016-07-04 06:39] LABS: GLUCOSE 82 mg/dL (70-99); MAGNESIUM 1.9 mg/dl (1.3-2.7)
[2016-07-04 12:06] LABS: POINT-OF-CARE METER ID UU13113803
[2016-07-04 17:36] LABS: POINT-OF-CARE METER ID UU13113803
[2016-07-04 21:06] LABS: POINT-OF-CARE METER ID UU13113803
[2016-07-05] VITALS: BP 150/66
[2016-07-05 04:00] VITALS: BP 143/64
[2016-07-05 06:04] LABS: HEMATOCRIT 28.2 % (36.0-46.0); MCH 29.2 PG (29.0-34.0); MCHC 32.6 G/DL (30.0-36.0); MCV 89.5 FL (83-99); PLATELET COUNT 324 K/uL (156-360); RBC DIS.WIDTH-CV 17.7 % (11.8-14.6); RBC DIS.WIDTH-SD 56.8 % (39-53); RED BLOOD COUNT 3.15 M/uL (3.80-5.20); WHITE BLOOD COUNT 11.5 K/uL (4.1-10.2)
[2016-07-05 06:37] LABS: INTER. NORMALIZED RATIO 1.2; PROTHROMBIN TIME 11.9 (9.2-11.2); PTT 38.1 (25-32)
[2016-07-05 06:40] LABS: ANION GAP 10 MEQ/L (2-14); CHLORIDE 105 MEQ/L (99-109); GFR ESTIMATE (CALCULATED) 44 mL/min/; POTASSIUM 3.6 MEQ/L (3.7-5.4); SAMPLE HEMOLYSIS CHECK 0; SAMPLE ICTERIC CHECK 0; SAMPLE LIPEMIA CHECK 0; SODIUM 137 MEQ/L (136-147); UREA NITROGEN (BUN) 21 mg/dL (9-23)
[2016-07-05 06:45] LABS: GLUCOSE 173 mg/dL (70-99); MAGNESIUM 2.2 mg/dl (1.3-2.7)
[2016-07-05 07:46] LABS: POINT-OF-CARE METER ID UU14174217
[2016-07-05 08:00] VITALS: BP 148/86
[2016-07-05 12:00] VITALS: BP 143/65
[2016-07-05 12:33] LABS: POINT-OF-CARE METER ID UU13113803
[2016-07-05 14:00] VITALS: BP 148/60
[2016-07-05 15:11] LABS: TROP-I INTERPRETATION POSITIVE
[2016-07-05 15:22] LABS: TROPONIN-I 1.46 ng/mL (0.0-0.30)
[2016-07-05 16:50] LABS: POINT-OF-CARE METER ID UU14174217
[2016-07-05 20:00] VITALS: BP 146/62
[2016-07-05 22:11] LABS: POINT-OF-CARE METER ID UU13113731
[2016-07-06] VITALS (8 sets, daily range): BP systolic 137–178; BP diastolic 61–86
[2016-07-06 09:04] LABS: HEMATOCRIT 29.9 % (36.0-46.0); MCH 29.1 PG (29.0-34.0); MCHC 32.8 G/DL (30.0-36.0); MCV 88.7 FL (83-99); MEAN PLAT.VOLUME 9.6 uM^3 (9.5-12.4); PLATELET COUNT 309 K/uL (156-360); RBC DIS.WIDTH-CV 17.5 % (11.8-14.6); RBC DIS.WIDTH-SD 56.4 % (39-53); RED BLOOD COUNT 3.37 M/uL (3.80-5.20); WHITE BLOOD COUNT 9.6 K/uL (4.1-10.2)
[2016-07-06 09:33] LABS: ANION GAP 11 MEQ/L (2-14); CHLORIDE 108 MEQ/L (99-109); GFR ESTIMATE (CALCULATED) 53 mL/min/; GLUCOSE 116 mg/dL (70-99); MAGNESIUM 1.9 mg/dl (1.3-2.7); POTASSIUM 4.1 MEQ/L (3.7-5.4); SAMPLE HEMOLYSIS CHECK 0; SAMPLE ICTERIC CHECK 0; SAMPLE LIPEMIA CHECK 0; SODIUM 139 MEQ/L (136-147); UREA NITROGEN (BUN) 17 mg/dL (9-23)
[2016-07-07 00:42] VITALS: BP 148/70
[2016-07-07 03:59] VITALS: BP 150/84
[2016-07-07 06:39] LABS: MCH 28.8 PG (29.0-34.0); MCV 90.1 FL (83-99); MEAN PLAT.VOLUME 9.6 uM^3 (9.5-12.4); PLATELET COUNT 328 K/uL (156-360); RBC DIS.WIDTH-CV 17.9 % (11.8-14.6); RBC DIS.WIDTH-SD 57.7 % (39-53); RED BLOOD COUNT 3.33 M/uL (3.80-5.20); WHITE BLOOD COUNT 9.5 K/uL (4.1-10.2)
[2016-07-07 06:56] LABS: ANION GAP 7 MEQ/L (2-14); CHLORIDE 106 MEQ/L (99-109); GFR ESTIMATE (CALCULATED) 53 mL/min/; GLUCOSE 113 mg/dL (70-99); MAGNESIUM 1.9 mg/dl (1.3-2.7); SAMPLE HEMOLYSIS CHECK 0; SAMPLE ICTERIC CHECK 0; SAMPLE LIPEMIA CHECK 0; SODIUM 135 MEQ/L (136-147); UREA NITROGEN (BUN) 17 mg/dL (9-23)
[2016-07-07 07:33] LABS: POINT-OF-CARE METER ID UU14174216
[2016-07-07 07:41] VITALS: BP 135/78
[2016-07-07 11:11] LABS: POINT-OF-CARE METER ID UU14174216
[2016-07-07 12:13] VITALS: BP 137/74
[2016-07-07 16:40] LABS: POINT-OF-CARE METER ID UU14174216
[2016-07-07 17:06] VITALS: BP 147/67
[2016-07-07 20:00] VITALS: BP 163/80
[2016-07-08] VITALS: BP 134/73
[2016-07-08 04:00] VITALS: BP 139/77
[2016-07-08 08:05] VITALS: BP 151/68
[2016-07-08 12:54] VITALS: BP 136/77
[2016-07-08 16:05] VITALS: BP 133/72
[2016-07-08 23:18] VITALS: BP 135/66
[2016-07-09 07:30] VITALS: BP 139/72
[2016-07-09 15:20] VITALS: BP 145/64
[2016-07-09 23:44] VITALS: BP 135/66
[2016-07-10 07:45] VITALS: BP 176/82
[2016-07-10 08:15] LABS: ANION GAP 9 MEQ/L (2-14); CHLORIDE 107 MEQ/L (99-109); GFR ESTIMATE (CALCULATED) 53 mL/min/; GLUCOSE 73 mg/dL (70-99); POTASSIUM 4.4 MEQ/L (3.7-5.4); SAMPLE HEMOLYSIS CHECK 1; SAMPLE ICTERIC CHECK 0; SAMPLE LIPEMIA CHECK 0; SODIUM 137 MEQ/L (136-147); UREA NITROGEN (BUN) 16 mg/dL (9-23)
[2016-07-10 08:29] LABS: DELETE MACHINE DIFF? YES
[2016-07-10 09:01] LABS: ABS NEUTROPHIL COUNT 8.06; ANISOCYTOSIS 2+; HEMATOCRIT 28.2 % (36.0-46.0); MACROCYTES 1+; MCH 28.1 PG (29.0-34.0); MCHC 30.9 G/DL (30.0-36.0); MICROCYTOSIS 1+; PLAT.SUFFICIENCY INCREASED; POLYCHROMASIA OCC; RBC DIS.WIDTH-CV 19.3 % (11.8-14.6); RBC DIS.WIDTH-SD 62.3 % (39-53); USER ID STC; WHITE BLOOD COUNT 10.1 K/uL (4.1-10.2)
[2016-07-10] MEDS ORDERED: ENDOCET 5-3251 EACH PO (14:36)
[2016-07-10] MEDS ORDERED: AMLODIPINE BESY10 MG PO (14:36)
[2016-07-10] MEDS ORDERED: BISACODYL5 MG PO (14:36)
[2016-07-10] MEDS ORDERED: SENNA PLUS TAB1 EACH PO (14:36)
[2016-07-10] MEDS ORDERED: FERROUS SULFAT325 MG PO (14:36)
[2016-07-10] MEDS ORDERED: FUROSEMIDE20 MG PO (14:36)
[2016-07-10] MEDS ORDERED: LOPRESSOR25 MG PO (14:42)
[2016-07-10 16:00] VITALS: BP 139/69
[2016-07-10 17:13] LABS: POINT-OF-CARE USER ID STWLMB34
== END 2016-07-10 18:01 | DRG 239 ==
LOC: EME 21:51 → 5EAST 06-21 01:47 → EDOF 06-21 01:47 → 4EAST 06-21 01:47 → 4WEST 06-21 01:47 → 5EAST 06-21 02:38 → 4EAST 06-29 15:08 → 4WEST 06-29 21:32 → 4EAST 07-06 21:54 → 2EASTP 07-07 19:52
PROVIDERS: Anesthesiology; Emergency Medicine; Family Medicine; Hospitalist; Internal Medicine; Internal Medicine Cardiovascular Disease; Internal Medicine Critical Care Medicine; Internal Medicine Nephrology; Internal Medicine Pulmonary Disease; Physician Assistant; Physician Assistant Surgical; Surgery
DX: E11.52 Type 2 diabetes mellitus with diabetic peripheral angiopathy with gangrene (principal); I97.89 Other postprocedural complications and disorders of the circulatory system, not elsewhere classified; I21.4 Non-ST elevation (NSTEMI) myocardial infarction; I11.0 Hypertensive heart disease with heart failure; I50.33 Acute on chronic diastolic (congestive) heart failure; J96.00 Acute respiratory failure, unspecified whether with hypoxia or hypercapnia; N17.9 Acute kidney failure, unspecified; E11.621 Type 2 diabetes mellitus with foot ulcer; L97.419 Non-pressure chronic ulcer of right heel and midfoot with unspecified severity; L03.115 Cellulitis of right lower limb; E11.42 Type 2 diabetes mellitus with diabetic polyneuropathy; E11.65 Type 2 diabetes mellitus with hyperglycemia; I35.0 Nonrheumatic aortic (valve) stenosis; J98.11 Atelectasis; E87.6 Hypokalemia; I25.10 Atherosclerotic heart disease of native coronary artery without angina pectoris; I48.91 Unspecified atrial fibrillation; L30.4 Erythema intertrigo; G54.6 Phantom limb syndrome with pain; G89.29 Other chronic pain; M54.9 Dorsalgia, unspecified; D64.9 Anemia, unspecified; K59.00 Constipation, unspecified; L24.89 Irritant contact dermatitis due to other agents; R32 Unspecified urinary incontinence; E78.5 Hyperlipidemia, unspecified; E66.9 Obesity, unspecified; Z68.31 Body mass index [BMI] 31.0-31.9, adult; Z89.512 Acquired absence of left leg below knee; Z95.5 Presence of coronary angioplasty implant and graft; Z90.5 Acquired absence of kidney; Z85.528 Personal history of other malignant neoplasm of kidney; Z79.4 Long term (current) use of insulin; Z87.891 Personal history of nicotine dependence
CPT/HCPCS: 31500; 36600; 71010; 80048; 80048 91; 80053; 80202; 81003; 82040; 82550; 82550 91; 82553; 82565; 82607; 82746; 82803; 82948; 83540; 83605; 83735; 83880; 84100; 84134; 84466; 84484; 85014; 85018; 85025; 85027; 85610; 85730; 86850; 86900; 86901; 86920; 87040; 87070; 87075; 87077; 87086; 87186; 87205; 87641; 88307; 88311; 92526 GN; 92610 GN; 93005; 94002; 94003; 94640; 94640 76; 94760; 94799; 97530 GO; 97530 GP; 99202; 99281; 99285; J0330; J1170; J1644; J1650; J1815; J1940; J1956; J2250; J2270; J2405; J2543; J2704; J3010; J3370; J3475; J3480; J7030; J7050; P9016

== ENCOUNTER 2016-08-16 07:12 | Inpatient (IN) | payer OTHER ==
[~2016-08-16] VITALS: Ht 172.7 cm; Wt 84.6 kg
[~2016-08-16 07:12] MED LIST changes: +AMLODIPINE BESYL5 MG PO; +AMOX TR-K CLV1 EAC4 PO; +BISACODYL5 MG PO; +CLINDAMYCIN HC300 MG PO; +DESYREL 150 MG150 MG PO; +DULCOLAX10 MG PR; +ENDOCET 5-3251 EACH PO; +EUCERIN CREME120 GM TP; +FLEET MINERAL133 ML PR; +IRON325 M1 PO; +MILK OF MAGN PO; +PERCOCET 10/1 TABLET PO; +PROBIOTIC1 EAC1 PO; +RANEXA1000 MG PO; +TOPROL XL25 MG PO; +WOMEN'S LAXATIVE5 M1 PO; +ZESTRIL10 MG PO
[2016-08-16 07:52] VITALS: BP 140/74
[2016-08-16 08:14] VITALS: BP 140/74
[2016-08-16] MEDS ORDERED: DURAGESIC12 MCG TD (08:21)
[2016-08-16 08:22] LABS: HEMATOCRIT 34.5 % (36.0-46.0); MCH 29.5 PG (29.0-34.0); MCHC 30.7 G/DL (30.0-36.0); MCV 96.1 FL (83-99); MEAN PLAT.VOLUME 9.1 uM^3 (9.5-12.4); PLATELET COUNT 389 K/uL (156-360); RBC DIS.WIDTH-CV 15.3 % (11.8-14.6); RBC DIS.WIDTH-SD 54.6 % (39-53); RED BLOOD COUNT 3.59 M/uL (3.80-5.20); WHITE BLOOD COUNT 7.5 K/uL (4.1-10.2)
[2016-08-16 08:40] LABS: ANION GAP 6 MEQ/L (2-14); CHLORIDE 106 MEQ/L (99-109); POTASSIUM 4.7 MEQ/L (3.7-5.4); SAMPLE HEMOLYSIS CHECK 0; SAMPLE ICTERIC CHECK 0; SAMPLE LIPEMIA CHECK 0; SODIUM 138 MEQ/L (136-147)
[2016-08-16 08:45] LABS: GFR ESTIMATE (CALCULATED) > 59 mL/min/; GLUCOSE 89 mg/dL (70-99); UREA NITROGEN (BUN) 15 mg/dL (9-23)
[2016-08-16 08:46] LABS: METH RESISTANT S AUREUS PCR POSITIVE (NEGATIVE)
[2016-08-16 08:52] LABS: PROBE CHECK PASS
[2016-08-16] MEDS ORDERED: METOPROLOL TART25 MG PO (11:52)
[2016-08-16 12:00] VITALS: BP 115/75
[2016-08-16 12:45] VITALS: BP 115/75
[2016-08-16 15:39] VITALS: BP 90/62
[2016-08-16 16:29] LABS: POINT-OF-CARE METER ID UU14149397
[2016-08-16 19:37] VITALS: BP 93/51
[2016-08-16 21:56] LABS: POINT-OF-CARE METER ID UU14188577
[2016-08-17] VITALS (7 sets, daily range): BP systolic 109–174; BP diastolic 57–87
[2016-08-17 06:46] LABS: HEMATOCRIT 28.6 % (36.0-46.0); MCH 29.3 PG (29.0-34.0); MCHC 30.8 G/DL (30.0-36.0); MCV 95.3 FL (83-99); MEAN PLAT.VOLUME 9.4 uM^3 (9.5-12.4); PLATELET COUNT 317 K/uL (156-360); RBC DIS.WIDTH-CV 15.2 % (11.8-14.6); RBC DIS.WIDTH-SD 53.3 % (39-53); WHITE BLOOD COUNT 8.1 K/uL (4.1-10.2)
[2016-08-17 12:06] LABS: POINT-OF-CARE METER ID UU14188577
[2016-08-17 16:32] LABS: POINT-OF-CARE METER ID UU14149397
[2016-08-18 08:10] VITALS: BP 128/77
[2016-08-18 10:01] LABS: GFR ESTIMATE (CALCULATED) > 59 mL/min/
[2016-08-18 12:12] LABS: POINT-OF-CARE METER ID UU14188577
[2016-08-18 15:47] VITALS: BP 130/78
[2016-08-18 17:03] LABS: POINT-OF-CARE METER ID UU14188577
[2016-08-18 20:00] VITALS: BP 119/65
[2016-08-18 23:49] VITALS: BP 121/69
[2016-08-19 07:35] VITALS: BP 121/72
[2016-08-19 11:44] LABS: POINT-OF-CARE METER ID UU14188577
[2016-08-19 15:35] VITALS: BP 130/68
[2016-08-19 23:12] LABS: POINT-OF-CARE METER ID UU14188577
[2016-08-19 23:41] VITALS: BP 129/64
[2016-08-20 07:57] VITALS: BP 140/80
[2016-08-20 15:48] VITALS: BP 107/58
[2016-08-20 16:57] LABS: POINT-OF-CARE METER ID UU14188577
[2016-08-20 17:59] LABS: GFR ESTIMATE (CALCULATED) > 59 mL/min/
[2016-08-20 18:04] LABS: VANCOMYCIN, TROUGH 30.6 MCG/ML (10-20)
[2016-08-20 21:18] VITALS: BP 126/68
[2016-08-20 21:59] LABS: POINT-OF-CARE METER ID UU14188577
[2016-08-20 23:49] VITALS: BP 101/73
[2016-08-21 06:43] LABS: POINT-OF-CARE METER ID UU14188577
[2016-08-21 07:52] VITALS: BP 132/76
[2016-08-21] MEDS ORDERED: LEVAQUIN750 MG PO (10:55)
[2016-08-21 11:50] LABS: POINT-OF-CARE METER ID UU14188577
== END 2016-08-21 14:53 | DRG 502 ==
LOC: 3EAST 07:12 → 2SOUTH 07:12 → 3EAST 12:46
PROVIDERS: Surgery
PROC: 0KBT0ZZ Excision of Left Lower Leg Muscle, Open Approach (ICD-10-PCS; principal; 2016-08-16)
DX: T87.44 Infection of amputation stump, left lower extremity (principal); E11.65 Type 2 diabetes mellitus with hyperglycemia; I25.10 Atherosclerotic heart disease of native coronary artery without angina pectoris; I10 Essential (primary) hypertension; E78.5 Hyperlipidemia, unspecified; I48.91 Unspecified atrial fibrillation; J44.9 Chronic obstructive pulmonary disease, unspecified; I73.9 Peripheral vascular disease, unspecified; D64.9 Anemia, unspecified; I77.1 Stricture of artery; Z95.5 Presence of coronary angioplasty implant and graft; B96.5 Pseudomonas (aeruginosa) (mallei) (pseudomallei) as the cause of diseases classified elsewhere; Z95.1 Presence of aortocoronary bypass graft; Z90.49 Acquired absence of other specified parts of digestive tract; Z85.528 Personal history of other malignant neoplasm of kidney; Z90.5 Acquired absence of kidney; B95.62 Methicillin resistant Staphylococcus aureus infection as the cause of diseases classified elsewhere; I25.2 Old myocardial infarction
CPT/HCPCS: 80048; 80202; 82565; 82948; 85027; 86850; 86900; 86901; 87070; 87075; 87077; 87147; 87186; 87205; 87641; 94640; 94640 76; 94799; J0330; J0744; J1170; J1650; J1815; J2405; J2543; J3010; J3370; J7050; J7120; Q0177

== ENCOUNTER 2017-04-24 10:35 | Inpatient (IN) | payer OTHER ==
[~2017-04-24] VITALS: Ht 134.6 cm; Wt 102.4 kg
[~2017-04-24 10:35] MED LIST changes: +DURAGESIC12 MCG TD; +LEVAQUIN750 MG PO; +METOPROLOL TART25 MG PO
[2017-04-24 12:28] LABS: EOSINOPHIL (%) 3.1 % (0-5); EOSINOPHIL COUNT 0.2 K/uL (0-0.3); HEMATOCRIT 33.9 % (36.0-46.0); IMMATURE GRANULOCYTE (%) 0.6 % (0.0-0.7); INSTRUMENT ABS NEUTROPHIL CT 5.4 K/uL; LYMPHOCYTE COUNT 0.7 K/uL (1.0-2.8); MCH 31.9 PG (29.0-34.0); MCV 96.6 FL (83-99); MEAN PLAT.VOLUME 9.6 uM^3 (9.5-12.4); MONOCYTE (%) 6.6 % (3-12); MONOCYTE COUNT 0.5 K/uL (0-0.8); NEUTROPHIL (%) 78.6 % (45-76); NEUTROPHIL COUNT 5.4 K/uL (1.8-6.4); PLATELET COUNT 284 K/uL (156-360); RBC DIS.WIDTH-SD 48.9 % (39-53); RED BLOOD COUNT 3.51 M/uL (3.80-5.20); WHITE BLOOD COUNT 6.9 K/uL (4.1-10.2)
[2017-04-24 12:36] LABS: CHLORIDE 106 mEq/L (99-109); POTASSIUM 4.2 mEq/L (3.7-5.4); SODIUM 138 mEq/L (136-147)
[2017-04-24 12:38] LABS: GLUCOSE 178 mg/dL (70-99)
[2017-04-24 12:39] LABS: ANION GAP 10 MEQ/L (2-14)
[2017-04-24 12:40] LABS: TOTAL BILIRUBIN 0.3 mg/dL (0.0-1.0)
[2017-04-24 12:41] LABS: ALKALINE PHOSPHATASE 88 IU/L (3-129)
[2017-04-24 12:42] LABS: GFR ESTIMATE (CALCULATED) > 59 mL/min/
[2017-04-24 12:43] LABS: UREA NITROGEN (BUN) 14 mg/dL (9-23)
[2017-04-24 14:11] LABS: ADD MIUA? YES; BILIRUBIN NEGATIVE; BLOOD MODERATE; GLUCOSE (STRIP) 50; KETONES NEGATIVE; LEUKOCYTES MODERATE; NITRITE NEGATIVE; PROTEIN (STRIP) >=500; SPECIFIC GRAVITY 1.012 (1.000-1.030); UROBILINOGEN 0.2 MG/DL (0.2-1.0)
[2017-04-24 14:18] LABS: COLOR YELLOW ((YELLOW))
[2017-04-24 14:31] LABS: WHITE BLOOD CELLS TNTC /HPF (0-5)
[2017-04-24] MEDS ORDERED: CIPRO500 MG PO (15:38)
[2017-04-24 16:03] LABS: BASE EXCESS 2.9 mEq/L (-3 to +3); BICARBONATE 28.5 mEq/L (22-26); METHEMOGLOBIN 1.7 % (0-1.5); PCO2 47 mm Hg (35-45); PO2 < 32 mm Hg (80-100); pH 7.39 (7.35-7.45)
[2017-04-24 16:04] LABS: COMMENTS - BLOOD GASES A+C+; DEVICE RA; FI02 21 %; SITE RR; TOTAL RESP RATE 18 resp/min
[2017-04-24 17:38] LABS: BASE EXCESS 2.5 mEq/L (-3 to +3); BICARBONATE 26.2 mEq/L (22-26); CARBOXY HGB 3.1 % (0-5); COMMENTS - BLOOD GASES A+C+; DEVICE RA; FI02 21 %; METHEMOGLOBIN 0.5 % (0-1.5); PCO2 36 mm Hg (35-45); PO2 53 mm Hg (80-100); SITE RR; TOTAL RESP RATE 20 resp/min; pH 7.47 (7.35-7.45)
[2017-04-24 17:45] LABS: TROP-I INTERPRETATION POSITIVE
[2017-04-24 17:47] LABS: TROPONIN-I 0.89 ng/mL (0.0-0.30)
[2017-04-24 19:31] LABS: INTER. NORMALIZED RATIO 1.2; PROTHROMBIN TIME 13.9 SEC (10.2-12.9)
[2017-04-24 19:34] LABS: PTT 28.3 SEC (25-37)
[2017-04-24] MEDS ORDERED: NORVASC10 MG PO (20:49)
[2017-04-24] MEDS ORDERED: TRAZODONE HCL50 MG PO (20:52)
[2017-04-24] MEDS ORDERED: METFORMIN HCL500 M1 PO (20:55)
[2017-04-24] MEDS ORDERED: OMEPRAZOLE20 MG PO (20:55)
[2017-04-24] MEDS ORDERED: NYAMYC60 GM TP (20:56)
[2017-04-24 22:56] VITALS: BP 150/69
[2017-04-24 23:40] LABS: POINT-OF-CARE METER ID UU13113698
[2017-04-25 02:19] LABS: TROP-I INTERPRETATION POSITIVE
[2017-04-25 02:26] LABS: TROPONIN-I 0.96 ng/mL (0.0-0.30)
[2017-04-25 04:02] VITALS: BP 146/68
[2017-04-25 04:44] LABS: METH RESISTANT S AUREUS PCR POSITIVE (NEGATIVE)
[2017-04-25 04:47] LABS: PROBE CHECK PASS
[2017-04-25 07:42] LABS: HEMATOCRIT 31.9 % (36.0-46.0); MCH 31.9 PG (29.0-34.0); MCHC 31.7 G/DL (30.0-36.0); MEAN PLAT.VOLUME 9.3 uM^3 (9.5-12.4); PLATELET COUNT 254 K/uL (156-360); RBC DIS.WIDTH-CV 14.2 % (11.8-14.6); RBC DIS.WIDTH-SD 51.8 % (39-53); RED BLOOD COUNT 3.17 M/uL (3.80-5.20); WHITE BLOOD COUNT 7.3 K/uL (4.1-10.2)
[2017-04-25 07:43] LABS: MCV 100.6 FL (83-99)
[2017-04-25 07:48] LABS: INTER. NORMALIZED RATIO 1.2
[2017-04-25 07:50] LABS: POINT-OF-CARE METER ID UU13113698
[2017-04-25 07:52] LABS: PTT 87.1 SEC (25-37)
[2017-04-25 08:07] VITALS: BP 182/85
[2017-04-25 08:22] LABS: Estimated Average Glucose 148 mg/dL (70-123)
[2017-04-25 09:01] LABS: HEMOGLOBIN A1c (GLYCOHEMOGLOB) 6.8 % HGB (Below 5.7)
[2017-04-25 09:40] LABS: ALKALINE PHOSPHATASE 72 IU/L (3-129); ANION GAP 10 MEQ/L (2-14); CHLORIDE 107 MEQ/L (99-109); GFR ESTIMATE (CALCULATED) 48 mL/min/; GLUCOSE 157 mg/dL (70-99); HDL CHOLESTEROL 36 MG/DL (Desirable>=50); LDL CHOLESTEROL 66 mg/dL (Desirable<100); NON-HDL CHOLESTEROL 81 mg/dL (Desirable<160); POTASSIUM 4.3 MEQ/L (3.7-5.4); SAMPLE HEMOLYSIS CHECK 0; SAMPLE ICTERIC CHECK 0; SAMPLE LIPEMIA CHECK 0; SODIUM 142 MEQ/L (136-147); TOTAL BILIRUBIN 0.3 MG/DL (0.0-1.0); TOTAL CHOLESTEROL 117 mg/dL (Desirable<200); TRIGLYCERIDES 77 MG/DL (Normal: <150); UREA NITROGEN (BUN) 14 mg/dL (9-23)
[2017-04-25 09:51] LABS: TROP-I INTERPRETATION POSITIVE; TROPONIN-I 0.77 ng/mL (0.0-0.30)
[2017-04-25 11:03] VITALS: BP 128/61
[2017-04-25 11:07] LABS: HPCA INDEX 0.23
[2017-04-25 11:32] LABS: POINT-OF-CARE METER ID UU13113781
[2017-04-25 14:47] LABS: HEMATOCRIT 34.5 % (36.0-46.0); MCH 32.2 PG (29.0-34.0); MCHC 31.9 G/DL (30.0-36.0); MCV 100.9 FL (83-99); MEAN PLAT.VOLUME 9.5 uM^3 (9.5-12.4); PLATELET COUNT 273 K/uL (156-360); RBC DIS.WIDTH-CV 14.3 % (11.8-14.6); RBC DIS.WIDTH-SD 51.8 % (39-53); RED BLOOD COUNT 3.42 M/uL (3.80-5.20); WHITE BLOOD COUNT 7.1 K/uL (4.1-10.2)
[2017-04-25 15:01] LABS: INTER. NORMALIZED RATIO 1.1; PROTHROMBIN TIME 12.9 SEC (10.2-12.9)
[2017-04-25 15:05] LABS: PTT 34.4 SEC (25-37)
[2017-04-25 15:23] VITALS: BP 131/83
[2017-04-25 16:41] LABS: POINT-OF-CARE METER ID UU13113698
[2017-04-25 20:17] VITALS: BP 183/87
[2017-04-25 21:04] LABS: POINT-OF-CARE METER ID UU13113698
[2017-04-25 23:55] VITALS: BP 150/70
[2017-04-26 03:31] VITALS: BP 180/90
[2017-04-26 04:25] VITALS: BP 150/70
[2017-04-26 06:22] LABS: ALKALINE PHOSPHATASE 62 IU/L (3-129); ANION GAP 7 MEQ/L (2-14); CHLORIDE 107 MEQ/L (99-109); GFR ESTIMATE (CALCULATED) > 59 mL/min/; GLUCOSE 136 mg/dL (70-99); POTASSIUM 4.5 MEQ/L (3.7-5.4); SAMPLE HEMOLYSIS CHECK 1; SAMPLE ICTERIC CHECK 0; SAMPLE LIPEMIA CHECK 0; SODIUM 138 MEQ/L (136-147); TOTAL BILIRUBIN 0.3 MG/DL (0.0-1.0); UREA NITROGEN (BUN) 13 mg/dL (9-23)
[2017-04-26 08:04] LABS: WHITE BLOOD COUNT ND K/uL (4.1-10.2)
[2017-04-26 08:05] LABS: HEMATOCRIT ND % (36.0-46.0); MCH ND PG (29.0-34.0); MCV ND FL (83-99); RED BLOOD COUNT ND M/uL (3.80-5.20)
[2017-04-26 08:06] LABS: POINT-OF-CARE METER ID UU13113698
[2017-04-26 08:06] LABS: MCHC ND G/DL (30.0-36.0); RBC DIS.WIDTH-CV ND % (11.8-14.6); RBC DIS.WIDTH-SD ND % (39-53)
[2017-04-26 08:07] LABS: EOSINOPHIL (%) ND % (0-5); MONOCYTE (%) ND % (3-12); NEUTROPHIL (%) ND % (45-76)
[2017-04-26 08:08] LABS: IMMATURE GRANULOCYTE (%) ND % (0.0-0.7); LYMPHOCYTE COUNT ND K/uL (1.0-2.8); MONOCYTE COUNT ND K/uL (0-0.8); NEUTROPHIL COUNT ND K/uL (1.8-6.4)
[2017-04-26 08:09] LABS: BASOPHIL COUNT ND K/uL (0-0.1); EOSINOPHIL COUNT ND K/uL (0-0.3); IMMATURE GRANULOCYTE COUNT ND K/uL; INSTRUMENT ABS NEUTROPHIL CT ND K/uL; NRBC (%) ND /100 WBC (0-0)
[2017-04-26 09:15] VITALS: BP 145/69
[2017-04-26 09:40] LABS: EOSINOPHIL (%) 5.2 % (0-5); EOSINOPHIL COUNT 0.4 K/uL (0-0.3); HEMATOCRIT 34.4 % (36.0-46.0); IMMATURE GRANULOCYTE (%) 0.6 % (0.0-0.7); IMMATURE GRANULOCYTE COUNT 0.1 K/uL; INSTRUMENT ABS NEUTROPHIL CT 5.9 K/uL; LYMPHOCYTE COUNT 0.8 K/uL (1.0-2.8); MCH 30.7 PG (29.0-34.0); MCHC 30.8 G/DL (30.0-36.0); MCV 99.7 FL (83-99); MEAN PLAT.VOLUME 9.2 uM^3 (9.5-12.4); MONOCYTE COUNT 0.7 K/uL (0-0.8); NEUTROPHIL (%) 74.9 % (45-76); NEUTROPHIL COUNT 5.9 K/uL (1.8-6.4); PLATELET COUNT 316 K/uL (156-360); RBC DIS.WIDTH-CV 14.3 % (11.8-14.6); RBC DIS.WIDTH-SD 52.1 % (39-53); RED BLOOD COUNT 3.45 M/uL (3.80-5.20); WHITE BLOOD COUNT 7.9 K/uL (4.1-10.2)
[2017-04-26 12:18] LABS: POINT-OF-CARE METER ID UU13113698
[2017-04-26 13:41] VITALS: BP 153/70
[2017-04-26 16:27] VITALS: BP 142/69
[2017-04-26 16:46] LABS: POINT-OF-CARE METER ID UU14174216
[2017-04-26 20:44] LABS: POINT-OF-CARE METER ID UU14314088
[2017-04-26 21:25] VITALS: BP 149/67
[2017-04-27] VITALS (8 sets, daily range): BP systolic 117–172; BP diastolic 55–74
[2017-04-27 05:54] LABS: EOSINOPHIL (%) 5.3 % (0-5); EOSINOPHIL COUNT 0.4 K/uL (0-0.3); HEMATOCRIT 30.5 % (36.0-46.0); IMMATURE GRANULOCYTE (%) 0.4 % (0.0-0.7); INSTRUMENT ABS NEUTROPHIL CT 5.8 K/uL; MCH 31.7 PG (29.0-34.0); MCHC 31.8 G/DL (30.0-36.0); MCV 99.7 FL (83-99); MEAN PLAT.VOLUME 9.5 uM^3 (9.5-12.4); MONOCYTE (%) 9.3 % (3-12); MONOCYTE COUNT 0.8 K/uL (0-0.8); NEUTROPHIL (%) 72.3 % (45-76); NEUTROPHIL COUNT 5.8 K/uL (1.8-6.4); PLATELET COUNT 296 K/uL (156-360); RBC DIS.WIDTH-SD 50.8 % (39-53); RED BLOOD COUNT 3.06 M/uL (3.80-5.20); WHITE BLOOD COUNT 8.1 K/uL (4.1-10.2)
[2017-04-27 06:21] LABS: ANION GAP 8 MEQ/L (2-14); CHLORIDE 103 MEQ/L (99-109); GFR ESTIMATE (CALCULATED) 53 mL/min/; GLUCOSE 181 mg/dL (70-99); POTASSIUM 4.5 MEQ/L (3.7-5.4); SAMPLE HEMOLYSIS CHECK 0; SAMPLE ICTERIC CHECK 0; SAMPLE LIPEMIA CHECK 0; SODIUM 138 MEQ/L (136-147); UREA NITROGEN (BUN) 14 mg/dL (9-23)
[2017-04-27 07:44] LABS: POINT-OF-CARE METER ID UU13113698
[2017-04-27 11:38] LABS: POINT-OF-CARE METER ID UU13113781
[2017-04-27 17:09] LABS: POINT-OF-CARE METER ID UU13113781
[2017-04-27 20:45] LABS: POINT-OF-CARE METER ID UU14174216
[2017-04-28 04:09] VITALS: BP 152/70
[2017-04-28 05:48] LABS: EOSINOPHIL (%) 6.2 % (0-5); EOSINOPHIL COUNT 0.5 K/uL (0-0.3); HEMATOCRIT 32.9 % (36.0-46.0); IMMATURE GRANULOCYTE (%) 0.4 % (0.0-0.7); LYMPHOCYTE COUNT 1.2 K/uL (1.0-2.8); MCH 30.8 PG (29.0-34.0); MCHC 31.3 G/DL (30.0-36.0); MCV 98.5 FL (83-99); MEAN PLAT.VOLUME 9.3 uM^3 (9.5-12.4); MONOCYTE (%) 8.4 % (3-12); MONOCYTE COUNT 0.7 K/uL (0-0.8); NEUTROPHIL (%) 70.9 % (45-76); PLATELET COUNT 349 K/uL (156-360); RBC DIS.WIDTH-CV 13.8 % (11.8-14.6); RBC DIS.WIDTH-SD 49.9 % (39-53); RED BLOOD COUNT 3.34 M/uL (3.80-5.20); WHITE BLOOD COUNT 8.5 K/uL (4.1-10.2)
[2017-04-28 06:11] LABS: ANION GAP 7 MEQ/L (2-14); CHLORIDE 101 MEQ/L (99-109); GFR ESTIMATE (CALCULATED) 48 mL/min/; GLUCOSE 136 mg/dL (70-99); POTASSIUM 4.5 MEQ/L (3.7-5.4); SAMPLE HEMOLYSIS CHECK 0; SAMPLE ICTERIC CHECK 0; SAMPLE LIPEMIA CHECK 0; SODIUM 138 MEQ/L (136-147); UREA NITROGEN (BUN) 15 mg/dL (9-23)
[2017-04-28 08:04] LABS: POINT-OF-CARE METER ID UU14314088; POINT-OF-CARE USER ID ENVKC36
[2017-04-28 08:58] VITALS: BP 188/80
[2017-04-28 11:28] LABS: POINT-OF-CARE METER ID UU13113698; POINT-OF-CARE USER ID ENVKC36
[2017-04-28 11:49] VITALS: BP 150/70
[2017-04-28] MEDS ORDERED: AMOXICILLIN500 MG PO (13:23)
[2017-04-28] MEDS ORDERED: AMLODIPINE BESYL5 MG PO (13:23)
[2017-04-28] MEDS ORDERED: LISINOPRIL20 MG PO (13:24)
[2017-04-28] MEDS ORDERED: FUROSEMIDE20 MG PO (13:24)
[2017-04-28] MEDS ORDERED: PANTOPRAZOLE SO40 MG PO (13:25)
[2017-04-28 15:22] VITALS: BP 159/70
[2017-04-28 16:40] LABS: POINT-OF-CARE METER ID UU13113698; POINT-OF-CARE USER ID ENVKC36
[2017-04-29] MEDS ORDERED: PANTOPRAZOLE SO40 MG PO (13:20)
== END 2017-04-28 17:32 | disposition home health service (06) | DRG 189 ==
LOC: EME 10:35 → 4EAST 20:35 → EDOF 20:35 → ENRESERV 20:41 → 4EAST 22:34 → ENPENDDIS 04-28 → 4EAST 04-28 17:32
PROVIDERS: Emergency Medicine; Internal Medicine; Physician Assistant Medical
DX: J96.01 Acute respiratory failure with hypoxia (principal); I11.0 Hypertensive heart disease with heart failure; I50.33 Acute on chronic diastolic (congestive) heart failure; I48.0 Paroxysmal atrial fibrillation; F32.9 Major depressive disorder, single episode, unspecified; I25.10 Atherosclerotic heart disease of native coronary artery without angina pectoris; I27.20 Pulmonary hypertension, unspecified; Z90.5 Acquired absence of kidney; Z89.511 Acquired absence of right leg below knee; Z89.512 Acquired absence of left leg below knee; E11.40 Type 2 diabetes mellitus with diabetic neuropathy, unspecified; F41.9 Anxiety disorder, unspecified; E11.65 Type 2 diabetes mellitus with hyperglycemia; K74.60 Unspecified cirrhosis of liver; E88.09 Other disorders of plasma-protein metabolism, not elsewhere classified; I16.0 Hypertensive urgency; G43.909 Migraine, unspecified, not intractable, without status migrainosus; N39.0 Urinary tract infection, site not specified; J98.11 Atelectasis; I08.2 Rheumatic disorders of both aortic and tricuspid valves; R31.0 Gross hematuria; E66.9 Obesity, unspecified; Z68.43 Body mass index [BMI] 50.0-59.9, adult; J44.9 Chronic obstructive pulmonary disease, unspecified; E11.52 Type 2 diabetes mellitus with diabetic peripheral angiopathy with gangrene; I25.2 Old myocardial infarction; G89.29 Other chronic pain; Z86.14 Personal history of Methicillin resistant Staphylococcus aureus infection; D64.9 Anemia, unspecified; K21.9 Gastro-esophageal reflux disease without esophagitis; I45.10 Unspecified right bundle-branch block; K59.00 Constipation, unspecified; Z87.891 Personal history of nicotine dependence
CPT/HCPCS: 36600; 71020; 71275; 74176; 80048; 80053; 80061; 81003; 82565; 82803; 82948; 83036; 83735; 83880; 84484; 84520; 85025; 85025 91; 85027; 85610; 85730; 86803; 87077; 87086; 87186; 87641; 93005; 93306; 94640; 94640 76; 94760; 94799; 99202; J0360; J1815; J1940; J2405; J7030

== ENCOUNTER 2017-04-29 10:10 | Inpatient (IN) | payer OTHER ==
[~2017-04-29] VITALS: Ht 172.7 cm; Wt 94.2 kg
[~2017-04-29 10:10] MED LIST changes: +AMOXICILLIN500 MG PO; +CIPRO500 MG PO; +LISINOPRIL20 MG PO; +METFORMIN HCL500 M1 PO; +NORVASC10 MG PO; +NYAMYC60 GM TP; +OMEPRAZOLE20 MG PO; +TRAZODONE HCL50 MG PO
[2017-04-29 11:16] LABS: EOSINOPHIL (%) 4.5 % (0-5); EOSINOPHIL COUNT 0.4 K/uL (0-0.3); HEMATOCRIT 35.3 % (36.0-46.0); IMMATURE GRANULOCYTE (%) 0.7 % (0.0-0.7); IMMATURE GRANULOCYTE COUNT 0.1 K/uL; INSTRUMENT ABS NEUTROPHIL CT 7.1 K/uL; LYMPHOCYTE COUNT 0.8 K/uL (1.0-2.8); MCH 31.6 PG (29.0-34.0); MCHC 32.3 G/DL (30.0-36.0); MCV 97.8 FL (83-99); MEAN PLAT.VOLUME 9.4 uM^3 (9.5-12.4); MONOCYTE (%) 5.9 % (3-12); MONOCYTE COUNT 0.5 K/uL (0-0.8); NEUTROPHIL (%) 79.4 % (45-76); NEUTROPHIL COUNT 7.1 K/uL (1.8-6.4); PLATELET COUNT 345 K/uL (156-360); RBC DIS.WIDTH-CV 13.4 % (11.8-14.6); RBC DIS.WIDTH-SD 48.3 % (39-53); RED BLOOD COUNT 3.61 M/uL (3.80-5.20); WHITE BLOOD COUNT 8.9 K/uL (4.1-10.2)
[2017-04-29 11:22] LABS: INTER. NORMALIZED RATIO 1.1; PROTHROMBIN TIME 12.5 SEC (10.2-12.9)
[2017-04-29 11:25] LABS: PTT 29.2 SEC (25-37)
[2017-04-29 11:27] LABS: CHLORIDE 101 mEq/L (99-109); POTASSIUM 4.5 mEq/L (3.7-5.4); SODIUM 139 mEq/L (136-147)
[2017-04-29 11:28] LABS: GLUCOSE 166 mg/dL (70-99)
[2017-04-29 11:30] LABS: ANION GAP 10 MEQ/L (2-14)
[2017-04-29 11:32] LABS: GFR ESTIMATE (CALCULATED) > 59 mL/min/
[2017-04-29 11:33] LABS: UREA NITROGEN (BUN) 13 mg/dL (9-23)
[2017-04-29 11:36] LABS: TROP-I INTERPRETATION POSITIVE
[2017-04-29 13:00] LABS: CREATINE KINASE 36 IU/L (1-294)
[2017-04-29] MEDS ORDERED: PANTOPRAZOLE SO40 MG PO (13:20)
[2017-04-29 17:26] LABS: TROP-I INTERPRETATION POSITIVE
[2017-04-29 17:44] LABS: TROPONIN-I 0.66 ng/mL (0.0-0.30)
[2017-04-29 18:51] LABS: POINT-OF-CARE METER ID UU14174216
[2017-04-29 19:00] VITALS: BP 140/67
[2017-04-29 20:51] LABS: POINT-OF-CARE METER ID UU14314088
[2017-04-29 23:00] VITALS: BP 138/66
[2017-04-30 00:02] LABS: TROP-I INTERPRETATION POSITIVE
[2017-04-30 00:13] LABS: TROPONIN-I 0.62 ng/mL (0.0-0.30)
[2017-04-30 03:30] VITALS: BP 152/73
[2017-04-30 07:44] LABS: POINT-OF-CARE METER ID UU14174216; POINT-OF-CARE USER ID NUTSLF44
[2017-04-30 08:50] VITALS: BP 130/80
[2017-04-30 10:32] LABS: INTER. NORMALIZED RATIO 1.1; PROTHROMBIN TIME 12.9 SEC (10.2-12.9)
[2017-04-30 14:29] LABS: POINT-OF-CARE METER ID UU13113819; POINT-OF-CARE USER ID ADMKMM76
[2017-04-30 16:50] VITALS: BP 128/63
[2017-04-30 19:00] VITALS: BP 108/64
[2017-04-30 20:39] LABS: POINT-OF-CARE METER ID UU13113698
[2017-04-30 23:00] VITALS: BP 130/75
[2017-05-01 04:00] VITALS: BP 154/75
[2017-05-01 07:53] LABS: POINT-OF-CARE METER ID UU13113698
[2017-05-01 08:20] VITALS: BP 136/80
[2017-05-01 10:20] LABS: ANION GAP 7 MEQ/L (2-14); CHLORIDE 105 MEQ/L (99-109); POTASSIUM 4.7 MEQ/L (3.7-5.4); SAMPLE HEMOLYSIS CHECK 0; SAMPLE ICTERIC CHECK 0; SAMPLE LIPEMIA CHECK 0; SODIUM 139 MEQ/L (136-147)
[2017-05-01 10:26] LABS: GFR ESTIMATE (CALCULATED) > 59 mL/min/; UREA NITROGEN (BUN) 12 mg/dL (9-23)
[2017-05-01 10:27] LABS: GLUCOSE 258 mg/dL (70-99)
[2017-05-01 11:27] LABS: POINT-OF-CARE METER ID UU13113698
[2017-05-01 12:06] VITALS: BP 132/74
[2017-05-01 16:30] VITALS: BP 122/68
[2017-05-01 16:41] LABS: POINT-OF-CARE METER ID UU14174216
[2017-05-01 20:37] VITALS: BP 195/91
[2017-05-01 22:07] LABS: POINT-OF-CARE METER ID UU14314088
[2017-05-02 00:14] VITALS: BP 141/67
[2017-05-02 05:17] LABS: HEMATOCRIT 33.7 % (36.0-46.0); MCH 31.2 PG (29.0-34.0); MCHC 31.8 G/DL (30.0-36.0); MCV 98.3 FL (83-99); MEAN PLAT.VOLUME 9.4 uM^3 (9.5-12.4); PLATELET COUNT 350 K/uL (156-360); RBC DIS.WIDTH-CV 13.7 % (11.8-14.6); RBC DIS.WIDTH-SD 48.9 % (39-53); RED BLOOD COUNT 3.43 M/uL (3.80-5.20); WHITE BLOOD COUNT 8.5 K/uL (4.1-10.2)
[2017-05-02 08:13] LABS: POINT-OF-CARE METER ID UU13113698; POINT-OF-CARE USER ID NUTSLF44
[2017-05-02] MEDS ORDERED: BRILINTA90 MG PO (08:27)
[2017-05-02 09:00] VITALS: BP 175/77
== END 2017-05-02 11:56 | disposition home health service (06) | DRG 247 ==
LOC: EME 10:10 → EDOF 12:32 → 4EAST 12:32 → EDOF 12:32 → ENRESERV 12:34 → 4EAST 17:54
PROVIDERS: Emergency Medicine; Internal Medicine; Internal Medicine Cardiovascular Disease
DX: I25.110 Atherosclerotic heart disease of native coronary artery with unstable angina pectoris (principal); I25.82 Chronic total occlusion of coronary artery; I10 Essential (primary) hypertension; E11.51 Type 2 diabetes mellitus with diabetic peripheral angiopathy without gangrene; G21.9 Secondary parkinsonism, unspecified; I42.9 Cardiomyopathy, unspecified; E11.40 Type 2 diabetes mellitus with diabetic neuropathy, unspecified; I11.0 Hypertensive heart disease with heart failure; I50.32 Chronic diastolic (congestive) heart failure; I25.2 Old myocardial infarction; F32.9 Major depressive disorder, single episode, unspecified; N39.0 Urinary tract infection, site not specified; J98.11 Atelectasis; I45.10 Unspecified right bundle-branch block; F41.9 Anxiety disorder, unspecified; J45.909 Unspecified asthma, uncomplicated; I35.0 Nonrheumatic aortic (valve) stenosis; Z88.2 Allergy status to sulfonamides; Z85.528 Personal history of other malignant neoplasm of kidney; G47.00 Insomnia, unspecified; J44.9 Chronic obstructive pulmonary disease, unspecified; I48.0 Paroxysmal atrial fibrillation; E78.5 Hyperlipidemia, unspecified; G89.29 Other chronic pain; Z87.891 Personal history of nicotine dependence; Z89.512 Acquired absence of left leg below knee; Z95.5 Presence of coronary angioplasty implant and graft; Z90.710 Acquired absence of both cervix and uterus; Z87.442 Personal history of urinary calculi; Z89.511 Acquired absence of right leg below knee; Z90.5 Acquired absence of kidney; Z79.4 Long term (current) use of insulin; Z82.0 Family history of epilepsy and other diseases of the nervous system; Z82.5 Family history of asthma and other chronic lower respiratory diseases; I25.5 Ischemic cardiomyopathy; I73.9 Peripheral vascular disease, unspecified
CPT/HCPCS: 71010; 80048; 82550; 82948; 84484; 85025; 85027; 85347; 85610; 85730; 93005; 94640; 94640 76; 94760; 94799; 99281; 99285; C1725; C1769; C1874; C1887; G0378; J1644; J1650; J1815; J2250; J2270; J3010; J7030

== ENCOUNTER 2017-05-10 11:44 | Inpatient (IN) | payer OTHER ==
[~2017-05-10] VITALS: Ht 172.7 cm; Wt 101.0 kg
[~2017-05-10 11:44] MED LIST changes: +BRILINTA90 MG PO
[2017-05-10 13:28] LABS: BASOPHIL (%) 0.3 % (0-1); EOSINOPHIL COUNT 0.4 K/uL (0-0.3); HEMATOCRIT 34.1 % (36.0-46.0); HEMOGLOBIN 11.1 G/DL (11.9-15.5); IMMATURE GRANULOCYTE (%) 0.3 % (0.0-0.7); LYMPHOCYTE (%) 7.2 % (15-42); LYMPHOCYTE COUNT 0.6 K/uL (1.0-2.8); MCH 31.5 PG (29.0-34.0); MCHC 32.6 G/DL (30.0-36.0); MCV 96.9 FL (83-99); MONOCYTE (%) 5.1 % (3-12); MONOCYTE COUNT 0.4 K/uL (0-0.8); NEUTROPHIL (%) 82.1 % (45-76); NEUTROPHIL COUNT 7.1 K/uL (1.8-6.4); PLATELET COUNT 336 K/uL (156-360); RBC DIS.WIDTH-CV 13.7 % (11.8-14.6); RBC DIS.WIDTH-SD 48.4 % (39-53); RED BLOOD COUNT 3.52 M/uL (3.80-5.20); WHITE BLOOD COUNT 8.6 K/uL (4.1-10.2)
[2017-05-10 13:34] LABS: INTER. NORMALIZED RATIO 1.1
[2017-05-10 13:37] LABS: PTT 30.4 SEC (25-37)
[2017-05-10 13:49] LABS: TROP-I INTERPRETATION NEGATIVE; TROPONIN-I 0.29 ng/mL (0.0-0.30)
[2017-05-10 14:05] LABS: CHLORIDE 102 MEQ/L (99-109); CREATININE 1.1 MG/DL (0.6-1.3); GFR ESTIMATE (CALCULATED) 53 mL/min/; GLUCOSE 169 mg/dL (70-99); POTASSIUM 3.9 MEQ/L (3.7-5.4); SODIUM 138 MEQ/L (136-147); UREA NITROGEN (BUN) 13 mg/dL (9-23)
[2017-05-10] MEDS ORDERED: OMEPRAZOLE20 MG PO (15:30)
[2017-05-10 16:58] LABS: MAGNESIUM 1.7 mg/dl (1.3-2.7)
[2017-05-10 17:06] VITALS: BP 188/87
[2017-05-10 19:35] VITALS: BP 133/63
[2017-05-10 20:25] LABS: TROP-I INTERPRETATION NEGATIVE; TROPONIN-I 0.26 ng/mL (0.0-0.30)
[2017-05-10 23:13] VITALS: BP 130/60
[2017-05-11 01:07] LABS: TROP-I INTERPRETATION NEGATIVE; TROPONIN-I 0.24 ng/mL (0.0-0.30)
[2017-05-11 03:22] VITALS: BP 146/77
[2017-05-11 08:20] LABS: BASOPHIL (%) 0.2 % (0-1); EOSINOPHIL (%) 5.7 % (0-5); EOSINOPHIL COUNT 0.6 K/uL (0-0.3); HEMATOCRIT 30.4 % (36.0-46.0); HEMOGLOBIN 9.6 G/DL (11.9-15.5); IMMATURE GRANULOCYTE (%) 0.3 % (0.0-0.7); LYMPHOCYTE (%) 6.2 % (15-42); LYMPHOCYTE COUNT 0.6 K/uL (1.0-2.8); MCH 31.3 PG (29.0-34.0); MCHC 31.6 G/DL (30.0-36.0); MONOCYTE (%) 6.9 % (3-12); MONOCYTE COUNT 0.7 K/uL (0-0.8); NEUTROPHIL (%) 80.7 % (45-76); NEUTROPHIL COUNT 8.3 K/uL (1.8-6.4); PLATELET COUNT 307 K/uL (156-360); RBC DIS.WIDTH-CV 13.8 % (11.8-14.6); RBC DIS.WIDTH-SD 49.4 % (39-53); RED BLOOD COUNT 3.07 M/uL (3.80-5.20); WHITE BLOOD COUNT 10.3 K/uL (4.1-10.2)
[2017-05-11 09:00] VITALS: BP 177/74
[2017-05-11 09:17] LABS: ALBUMIN 2.1 g/dL (3.2-4.8); CHLORIDE 104 mEq/L (99-109); POTASSIUM 3.7 mEq/L (3.7-5.4); SODIUM 137 mEq/L (136-147)
[2017-05-11 09:20] LABS: GLUCOSE 175 mg/dL (70-99); TOTAL PROTEIN 5.6 g/dL (6.4-8.3)
[2017-05-11 09:22] LABS: TOTAL BILIRUBIN 0.5 mg/dL (0.0-1.0)
[2017-05-11 09:23] LABS: ALKALINE PHOSPHATASE 70 IU/L (3-129); CREATININE 1.1 mg/dL (0.6-1.3); GFR ESTIMATE (CALCULATED) 53 mL/min/
[2017-05-11 09:24] LABS: UREA NITROGEN (BUN) 13 mg/dL (9-23)
[2017-05-11 09:25] LABS: AST (GOT) 17 IU/L (2-34)
[2017-05-11 09:26] LABS: ALT (GPT) 13 IU/L (3-49)
[2017-05-11 11:22] VITALS: BP 181/82
[2017-05-11 14:48] VITALS: BP 133/62
[2017-05-11 20:02] VITALS: BP 142/62
[2017-05-12 03:30] VITALS: BP 163/75
[2017-05-12 05:54] LABS: BASOPHIL (%) 0.2 % (0-1); EOSINOPHIL (%) 5.8 % (0-5); EOSINOPHIL COUNT 0.6 K/uL (0-0.3); HEMATOCRIT 31.2 % (36.0-46.0); HEMOGLOBIN 9.7 G/DL (11.9-15.5); IMMATURE GRANULOCYTE (%) 0.5 % (0.0-0.7); LYMPHOCYTE (%) 5.5 % (15-42); LYMPHOCYTE COUNT 0.5 K/uL (1.0-2.8); MCH 30.8 PG (29.0-34.0); MCHC 31.1 G/DL (30.0-36.0); MONOCYTE (%) 8.6 % (3-12); MONOCYTE COUNT 0.8 K/uL (0-0.8); NEUTROPHIL (%) 79.4 % (45-76); NEUTROPHIL COUNT 7.5 K/uL (1.8-6.4); PLATELET COUNT 273 K/uL (156-360); RBC DIS.WIDTH-CV 13.7 % (11.8-14.6); RBC DIS.WIDTH-SD 49.5 % (39-53); RED BLOOD COUNT 3.15 M/uL (3.80-5.20); WHITE BLOOD COUNT 9.5 K/uL (4.1-10.2)
[2017-05-12 06:27] LABS: CHLORIDE 105 MEQ/L (99-109); CREATININE 1.1 MG/DL (0.6-1.3); GFR ESTIMATE (CALCULATED) 53 mL/min/; GLUCOSE 150 mg/dL (70-99); POTASSIUM 3.9 MEQ/L (3.7-5.4); SODIUM 138 MEQ/L (136-147); UREA NITROGEN (BUN) 12 mg/dL (9-23)
[2017-05-12 07:25] VITALS: BP 167/74
[2017-05-12 12:23] VITALS: BP 117/58
[2017-05-12 16:18] VITALS: BP 135/65
[2017-05-12 19:00] VITALS: BP 166/79
[2017-05-13 00:01] VITALS: BP 161/71
[2017-05-13 04:00] VITALS: BP 154/71
[2017-05-13 05:42] LABS: BASOPHIL (%) 0.1 % (0-1); EOSINOPHIL (%) 0.2 % (0-5); HEMATOCRIT 28.1 % (36.0-46.0); HEMOGLOBIN 9.1 G/DL (11.9-15.5); IMMATURE GRANULOCYTE (%) 0.4 % (0.0-0.7); LYMPHOCYTE (%) 4.8 % (15-42); LYMPHOCYTE COUNT 0.5 K/uL (1.0-2.8); MCH 32.2 PG (29.0-34.0); MCHC 32.4 G/DL (30.0-36.0); MCV 99.3 FL (83-99); MONOCYTE (%) 7.6 % (3-12); MONOCYTE COUNT 0.9 K/uL (0-0.8); NEUTROPHIL (%) 86.9 % (45-76); NEUTROPHIL COUNT 9.7 K/uL (1.8-6.4); PLATELET COUNT 254 K/uL (156-360); RBC DIS.WIDTH-CV 13.4 % (11.8-14.6); RBC DIS.WIDTH-SD 48.8 % (39-53); RED BLOOD COUNT 2.83 M/uL (3.80-5.20); WHITE BLOOD COUNT 11.2 K/uL (4.1-10.2)
[2017-05-13 06:11] LABS: CHLORIDE 104 MEQ/L (99-109); CREATININE 1.1 MG/DL (0.6-1.3); GFR ESTIMATE (CALCULATED) 53 mL/min/; GLUCOSE 219 mg/dL (70-99); SODIUM 138 MEQ/L (136-147); UREA NITROGEN (BUN) 14 mg/dL (9-23)
[2017-05-13 12:04] VITALS: BP 145/70
[2017-05-13 15:46] VITALS: BP 129/60
[2017-05-14] VITALS (25 sets, daily range): BP systolic 0–196; BP diastolic 0–109
[2017-05-14 00:05] LABS: BICARBONATE 24.7 mEq/L (22-26); CARBOXY HGB 2.7 % (0-5); METHEMOGLOBIN 1.6 % (0-1.5)
[2017-05-14 00:07] LABS: COMMENTS - BLOOD GASES C+; DEVICE NRBM; FI02 100 %; O2 FLOW 15 L/MIN; PCO2 55 mm Hg (35-45); PO2 76 mm Hg (80-100); SITE RR; pH 7.26 (7.35-7.45)
[2017-05-14 00:22] LABS: HEMATOCRIT 36.3 % (36.0-46.0); MCH 31.9 PG (29.0-34.0); MCV 99.7 FL (83-99); NRBC (%) 0.1 /100 WBC (0-0); RBC DIS.WIDTH-SD 50.5 % (39-53); WHITE BLOOD COUNT 26.3 K/uL (4.1-10.2)
[2017-05-14 00:23] LABS: HEMOGLOBIN 11.6 G/DL (11.9-15.5); PLATELET COUNT 486 K/uL (156-360); RED BLOOD COUNT 3.64 M/uL (3.80-5.20)
[2017-05-14 00:31] LABS: ALBUMIN 2.7 g/dL (3.2-4.8); CHLORIDE 101 mEq/L (99-109); POTASSIUM 4.1 mEq/L (3.7-5.4); SODIUM 136 mEq/L (136-147)
[2017-05-14 00:33] LABS: GLUCOSE 302 mg/dL (70-99)
[2017-05-14 00:35] LABS: TOTAL BILIRUBIN 0.5 mg/dL (0.0-1.0); TOTAL PROTEIN 7.8 g/dL (6.4-8.3)
[2017-05-14 00:37] LABS: ALKALINE PHOSPHATASE 90 IU/L (3-129); CREATININE 1.5 mg/dL (0.6-1.3); GFR ESTIMATE (CALCULATED) 37 mL/min/
[2017-05-14 00:38] LABS: UREA NITROGEN (BUN) 17 mg/dL (9-23)
[2017-05-14 00:39] LABS: AST (GOT) 13 IU/L (2-34)
[2017-05-14 00:40] LABS: ALT (GPT) 15 IU/L (3-49)
[2017-05-14 00:46] LABS: TROP-I INTERPRETATION NEGATIVE
[2017-05-14 03:58] LABS: HEMATOCRIT 29.7 % (36.0-46.0); MCH 31.6 PG (29.0-34.0); MCV 98.7 FL (83-99); RBC DIS.WIDTH-CV 14.1 % (11.8-14.6); RBC DIS.WIDTH-SD 50.8 % (39-53); RED BLOOD COUNT 3.01 M/uL (3.80-5.20); WHITE BLOOD COUNT 14.8 K/uL (4.1-10.2)
[2017-05-14 04:03] LABS: CHLORIDE 102 mEq/L (99-109); POTASSIUM 3.9 mEq/L (3.7-5.4); SODIUM 137 mEq/L (136-147)
[2017-05-14 04:04] LABS: GLUCOSE 275 mg/dL (70-99)
[2017-05-14 04:08] LABS: CREATININE 1.3 mg/dL (0.6-1.3); GFR ESTIMATE (CALCULATED) 44 mL/min/
[2017-05-14 04:09] LABS: UREA NITROGEN (BUN) 18 mg/dL (9-23)
[2017-05-14 04:35] LABS: HEMOGLOBIN 9.5 G/DL (11.9-15.5)
[2017-05-14 04:56] LABS: BASOPHIL (%) 0.1 % (0-1); EOSINOPHIL (%) 0.1 % (0-5); IMMATURE GRANULOCYTE (%) 0.6 % (0.0-0.7); LYMPHOCYTE (%) 1.6 % (15-42); LYMPHOCYTE COUNT 0.2 K/uL (1.0-2.8); MONOCYTE (%) 3.8 % (3-12); MONOCYTE COUNT 0.6 K/uL (0-0.8); NEUTROPHIL (%) 93.8 % (45-76); NEUTROPHIL COUNT 13.9 K/uL (1.8-6.4); PLAT.SUFFICIENCY ADEQUATE
[2017-05-14 04:57] LABS: PLATELET COUNT 275 K/uL (156-360)
[2017-05-15] VITALS (24 sets, daily range): BP systolic 117–166; BP diastolic 58–117
[2017-05-16] VITALS (24 sets, daily range): BP systolic 111–152; BP diastolic 50–95
[2017-05-16 05:52] LABS: HEMATOCRIT 27.7 % (36.0-46.0); HEMOGLOBIN 8.5 G/DL (11.9-15.5); MCHC 30.7 G/DL (30.0-36.0); MCV 101.1 FL (83-99); PLATELET COUNT 249 K/uL (156-360); RBC DIS.WIDTH-SD 51.8 % (39-53); RED BLOOD COUNT 2.74 M/uL (3.80-5.20); WHITE BLOOD COUNT 11.6 K/uL (4.1-10.2)
[2017-05-16 08:29] LABS: VANCOMYCIN, TROUGH 34.1 MCG/ML (10-20)
[2017-05-16 11:29] LABS: CHLORIDE 103 MEQ/L (99-109); CREATININE 1.1 MG/DL (0.6-1.3); GFR ESTIMATE (CALCULATED) 53 mL/min/; GLUCOSE 260 mg/dL (70-99); POTASSIUM 3.8 MEQ/L (3.7-5.4); SODIUM 137 MEQ/L (136-147); UREA NITROGEN (BUN) 19 mg/dL (9-23)
[2017-05-17] VITALS (25 sets, daily range): BP systolic 107–178; BP diastolic 46–103
[2017-05-18] VITALS (24 sets, daily range): BP systolic 109–154; BP diastolic 50–88
[2017-05-18 06:00] LABS: BASOPHIL (%) 0.1 % (0-1); EOSINOPHIL (%) 0.8 % (0-5); EOSINOPHIL COUNT 0.1 K/uL (0-0.3); HEMATOCRIT 25.8 % (36.0-46.0); HEMOGLOBIN 8.1 G/DL (11.9-15.5); IMMATURE GRANULOCYTE (%) 0.5 % (0.0-0.7); LYMPHOCYTE (%) 2.2 % (15-42); LYMPHOCYTE COUNT 0.3 K/uL (1.0-2.8); MCH 31.3 PG (29.0-34.0); MCHC 31.4 G/DL (30.0-36.0); MCV 99.6 FL (83-99); MONOCYTE (%) 4.3 % (3-12); MONOCYTE COUNT 0.6 K/uL (0-0.8); NEUTROPHIL (%) 92.1 % (45-76); NEUTROPHIL COUNT 12.5 K/uL (1.8-6.4); PLATELET COUNT 245 K/uL (156-360); RBC DIS.WIDTH-CV 14.6 % (11.8-14.6); RBC DIS.WIDTH-SD 53.3 % (39-53); RED BLOOD COUNT 2.59 M/uL (3.80-5.20); WHITE BLOOD COUNT 13.6 K/uL (4.1-10.2)
[2017-05-18 06:46] LABS: ALKALINE PHOSPHATASE 99 IU/L (3-129); ALT (GPT) 11 IU/L (3-49); AST (GOT) 21 IU/L (2-34); CHLORIDE 104 MEQ/L (99-109); CREATININE 1.3 MG/DL (0.6-1.3); GFR ESTIMATE (CALCULATED) 44 mL/min/; GLUCOSE 162 mg/dL (70-99); MAGNESIUM 1.9 mg/dl (1.3-2.7); PHOSPHORUS 3.7 mg/dL (2.5-4.9); SODIUM 140 MEQ/L (136-147); TOTAL BILIRUBIN 0.8 MG/DL (0.0-1.0); TOTAL PROTEIN 5.4 G/DL (6.4-8.3); UREA NITROGEN (BUN) 26 mg/dL (9-23); VANCOMYCIN, TROUGH 22.1 MCG/ML (10-20)
[2017-05-19] VITALS (22 sets, daily range): BP systolic 109–160; BP diastolic 54–92
[2017-05-19 05:44] LABS: BASOPHIL (%) 0.1 % (0-1); EOSINOPHIL (%) 4.5 % (0-5); EOSINOPHIL COUNT 0.6 K/uL (0-0.3); HEMATOCRIT 25.8 % (36.0-46.0); HEMOGLOBIN 8.1 G/DL (11.9-15.5); IMMATURE GRANULOCYTE (%) 0.5 % (0.0-0.7); LYMPHOCYTE (%) 3.6 % (15-42); LYMPHOCYTE COUNT 0.5 K/uL (1.0-2.8); MCHC 31.4 G/DL (30.0-36.0); MCV 98.9 FL (83-99); MONOCYTE (%) 4.3 % (3-12); MONOCYTE COUNT 0.5 K/uL (0-0.8); PLATELET COUNT 281 K/uL (156-360); RBC DIS.WIDTH-CV 14.7 % (11.8-14.6); RBC DIS.WIDTH-SD 53.2 % (39-53); RED BLOOD COUNT 2.61 M/uL (3.80-5.20); WHITE BLOOD COUNT 12.6 K/uL (4.1-10.2)
[2017-05-19 06:26] LABS: CHLORIDE 104 MEQ/L (99-109); CREATININE 1.3 MG/DL (0.6-1.3); GFR ESTIMATE (CALCULATED) 44 mL/min/; GLUCOSE 127 mg/dL (70-99); POTASSIUM 3.8 MEQ/L (3.7-5.4); SODIUM 140 MEQ/L (136-147); UREA NITROGEN (BUN) 25 mg/dL (9-23); VANCOMYCIN, TROUGH 15.7 MCG/ML (10-20)
[2017-05-20] VITALS (22 sets, daily range): BP systolic 73–150; BP diastolic 35–95
[2017-05-20 05:17] LABS: BASE EXCESS 4.4 mEq/L (-3 to +3); BICARBONATE 28.4 mEq/L (22-26); CARBOXY HGB 2.6 % (0-5); COMMENTS - BLOOD GASES C+A+; DEVICE NIV; FI02 50 %; METHEMOGLOBIN 1.5 % (0-1.5); MODE SPONT; PCO2 39 mm Hg (35-45); PEEP 8.5 CM/H20; PO2 54 mm Hg (80-100); PRES. SUPPORT 16 CM/H2O; SITE RR; TOTAL RESP RATE 36 resp/min; pH 7.47 (7.35-7.45)
[2017-05-20 05:45] LABS: BASOPHIL (%) 0.1 % (0-1); EOSINOPHIL (%) 6.1 % (0-5); EOSINOPHIL COUNT 0.6 K/uL (0-0.3); HEMATOCRIT 25.9 % (36.0-46.0); HEMOGLOBIN 8.1 G/DL (11.9-15.5); IMMATURE GRANULOCYTE (%) 0.4 % (0.0-0.7); LYMPHOCYTE (%) 3.5 % (15-42); LYMPHOCYTE COUNT 0.4 K/uL (1.0-2.8); MCHC 31.3 G/DL (30.0-36.0); MCV 99.2 FL (83-99); MONOCYTE (%) 5.2 % (3-12); MONOCYTE COUNT 0.5 K/uL (0-0.8); NEUTROPHIL (%) 84.7 % (45-76); NEUTROPHIL COUNT 8.4 K/uL (1.8-6.4); NRBC (%) 0.2 /100 WBC (0-0); PLATELET COUNT 270 K/uL (156-360); RBC DIS.WIDTH-CV 14.8 % (11.8-14.6); RBC DIS.WIDTH-SD 54.3 % (39-53); RED BLOOD COUNT 2.61 M/uL (3.80-5.20)
[2017-05-20 06:45] LABS: CHLORIDE 105 MEQ/L (99-109); CREATININE 1.1 MG/DL (0.6-1.3); GFR ESTIMATE (CALCULATED) 53 mL/min/; GLUCOSE 131 mg/dL (70-99); MAGNESIUM 2.1 mg/dl (1.3-2.7); PHOSPHORUS 3.3 mg/dL (2.5-4.9); POTASSIUM 3.6 MEQ/L (3.7-5.4); SODIUM 143 MEQ/L (136-147); UREA NITROGEN (BUN) 25 mg/dL (9-23)
[2017-05-20 21:31] LABS: BASE EXCESS 4.6 mEq/L (-3 to +3); BICARBONATE 29.2 mEq/L (22-26); CARBOXY HGB 2.6 % (0-5); COMMENTS - BLOOD GASES C+A+; DEVICE VENT; FI02 100 %; MECHANICAL RATE 24 resp/min; METHEMOGLOBIN 1.5 % (0-1.5); MODE AC; PCO2 43 mm Hg (35-45); PEEP 10 CM/H20; PO2 281 mm Hg (80-100); SITE RR; TIDAL VOLUME 450 ML; TOTAL RESP RATE 24 resp/min; pH 7.44 (7.35-7.45)
[2017-05-21] VITALS (28 sets, daily range): BP systolic 85–163; BP diastolic 40–79
[2017-05-21 06:18] LABS: HEMATOCRIT 22.1 % (36.0-46.0); MCH 30.2 PG (29.0-34.0); MCHC 30.3 G/DL (30.0-36.0); MCV 99.5 FL (83-99); PLATELET COUNT 221 K/uL (156-360); RBC DIS.WIDTH-CV 15.2 % (11.8-14.6); RBC DIS.WIDTH-SD 55.8 % (39-53); RED BLOOD COUNT 2.22 M/uL (3.80-5.20); WHITE BLOOD COUNT 7.6 K/uL (4.1-10.2)
[2017-05-21 06:27] LABS: HEMOGLOBIN 6.7 G/DL (11.9-15.5)
[2017-05-21 08:01] LABS: HEMOGLOBIN 6.8 G/DL (11.9-15.5)
[2017-05-21 08:05] LABS: GASTRIC OCCULT BLD. POSITIVE
[2017-05-21 11:05] LABS: ALBUMIN 1.8 G/DL (3.2-4.8); ALKALINE PHOSPHATASE 118 IU/L (3-129); ALT (GPT) 14 IU/L (3-49); DIRECT BILIRUBIN 0.2 mg/dL (0.0-0.3); LACTATE DEHYDROGENASE 488 IU/L (20-246); TOTAL PROTEIN 5.2 G/DL (6.4-8.3)
[2017-05-21 11:08] LABS: AST (GOT) 31 IU/L (2-34); TOTAL BILIRUBIN 0.5 MG/DL (0.0-1.0)
[2017-05-21 11:20] LABS: FOLIC ACID (FOLATE) 10.7 NG/ML (5.0-22.0)
[2017-05-21 11:22] LABS: BASE EXCESS 3.2 mEq/L (-3 to +3); BICARBONATE 26.9 mEq/L (22-26); CARBOXY HGB 1.6 % (0-5); COMMENTS - BLOOD GASES A+C+; DEVICE 980 PB; FI02 45 %; METHEMOGLOBIN 1.7 % (0-1.5); PCO2 37 mm Hg (35-45); PO2 59 mm Hg (80-100); SITE RR; pH 7.47 (7.35-7.45)
[2017-05-21 11:23] LABS: INSPIRATION TIME 1.2 seconds; MECHANICAL RATE 10 resp/min; MODE AC; PEEP 13.5 CM/H20; TIDAL VOLUME 600 ML; TOTAL RESP RATE 24 resp/min
[2017-05-21 21:53] LABS: HEMATOCRIT 32.7 % (36.0-46.0)
[2017-05-21 21:54] LABS: HEMOGLOBIN 10.6 G/DL (11.9-15.5); MCV 90.6 FL (83-99)
[2017-05-22] VITALS: BP 122/75
[2017-05-22 04:00] VITALS: BP 130/59
[2017-05-22 05:30] LABS: HEMATOCRIT 30.5 % (36.0-46.0); HEMOGLOBIN 9.9 G/DL (11.9-15.5); MCH 29.4 PG (29.0-34.0); MCHC 32.5 G/DL (30.0-36.0); MCV 90.5 FL (83-99); PLATELET COUNT 224 K/uL (156-360)
[2017-05-22 05:42] LABS: RED BLOOD COUNT 3.37 M/uL (3.80-5.20)
[2017-05-22 05:54] LABS: CHLORIDE 105 MEQ/L (99-109); CREATININE 1.3 MG/DL (0.6-1.3); GFR ESTIMATE (CALCULATED) 44 mL/min/; GLUCOSE 243 mg/dL (70-99); POTASSIUM 3.4 MEQ/L (3.7-5.4); SODIUM 141 MEQ/L (136-147); UREA NITROGEN (BUN) 34 mg/dL (9-23)
[2017-05-22 06:50] LABS: BASOPHIL (%) 0.1 % (0-1); EOSINOPHIL (%) 0.1 % (0-5); IMMATURE GRANULOCYTE (%) 0.9 % (0.0-0.7); LYMPHOCYTE COUNT 0.2 K/uL (1.0-2.8); MONOCYTE (%) 0.6 % (3-12); MONOCYTE COUNT 0.1 K/uL (0-0.8); NEUTROPHIL (%) 95.3 % (45-76); NEUTROPHIL COUNT 7.6 K/uL (1.8-6.4)
[2017-05-22 08:00] VITALS: BP 127/60
[2017-05-22 12:00] VITALS: BP 148/65
[2017-05-22 16:00] VITALS: BP 139/59
[2017-05-22 20:00] VITALS: BP 129/68
[2017-05-23] VITALS (7 sets, daily range): BP systolic 136–141; BP diastolic 57–107
[2017-05-23 06:05] LABS: HEMATOCRIT 32.8 % (36.0-46.0); HEMOGLOBIN 10.7 G/DL (11.9-15.5); MCH 30.3 PG (29.0-34.0); MCHC 32.6 G/DL (30.0-36.0); MCV 92.9 FL (83-99); PLATELET COUNT 231 K/uL (156-360); RBC DIS.WIDTH-CV 19.1 % (11.8-14.6); RBC DIS.WIDTH-SD 64.4 % (39-53); RED BLOOD COUNT 3.53 M/uL (3.80-5.20)
[2017-05-23 06:38] LABS: CHLORIDE 107 MEQ/L (99-109); CREATININE 1.2 MG/DL (0.6-1.3); GFR ESTIMATE (CALCULATED) 48 mL/min/; POTASSIUM 3.6 MEQ/L (3.7-5.4); SODIUM 142 MEQ/L (136-147); UREA NITROGEN (BUN) 45 mg/dL (9-23)
[2017-05-23 06:39] LABS: GLUCOSE 421 mg/dL (70-99); MAGNESIUM 2.5 mg/dl (1.3-2.7)
[2017-05-24 08:00] VITALS: BP 146/58
[2017-05-24 12:00] VITALS: BP 160/88
[2017-05-24 16:00] VITALS: BP 162/69
[2017-05-25 12:00] VITALS: BP 94/60
[2017-05-25 12:04] LABS: BASOPHIL (%) 0.1 % (0-1); EOSINOPHIL (%) 0 % (0-5); HEMATOCRIT 33.3 % (36.0-46.0); HEMOGLOBIN 10.4 G/DL (11.9-15.5); IMMATURE GRANULOCYTE (%) 1.5 % (0.0-0.7); LYMPHOCYTE COUNT 0.3 K/uL (1.0-2.8); MCH 29.5 PG (29.0-34.0); MCHC 31.2 G/DL (30.0-36.0); MCV 94.6 FL (83-99); MONOCYTE (%) 1.9 % (3-12); MONOCYTE COUNT 0.3 K/uL (0-0.8); NEUTROPHIL (%) 94.5 % (45-76); NEUTROPHIL COUNT 12.6 K/uL (1.8-6.4); PLATELET COUNT 224 K/uL (156-360); RBC DIS.WIDTH-CV 17.1 % (11.8-14.6); RBC DIS.WIDTH-SD 59.1 % (39-53); RED BLOOD COUNT 3.52 M/uL (3.80-5.20); WHITE BLOOD COUNT 13.3 K/uL (4.1-10.2)
[2017-05-25 12:38] LABS: CHLORIDE 108 MEQ/L (99-109); CREATININE 1.1 MG/DL (0.6-1.3); GFR ESTIMATE (CALCULATED) 53 mL/min/; GLUCOSE 446 mg/dL (70-99); MAGNESIUM 2.6 mg/dl (1.3-2.7); PHOSPHORUS 2.6 mg/dL (2.5-4.9); POTASSIUM 3.6 MEQ/L (3.7-5.4); SODIUM 141 MEQ/L (136-147); TRIGLYCERIDES 302 MG/DL (Normal: <150); UREA NITROGEN (BUN) 57 mg/dL (9-23)
[2017-05-25 13:00] VITALS: BP 107/59
[2017-05-25 15:00] VITALS: BP 114/68
[2017-05-25 15:57] LABS: BASE EXCESS -1.4 mEq/L (-3 to +3); BICARBONATE 22.7 mEq/L (22-26); DEVICE VENT; FI02 40 %; METHEMOGLOBIN 1.5 % (0-1.5); PCO2 35 mm Hg (35-45); PO2 54 mm Hg (80-100); SITE A LINE; pH 7.42 (7.35-7.45)
[2017-05-25 15:58] LABS: CONTINUOUS POS AIRWAY PRESSURE 5 cm H2O; MODE SPONT; PRES. SUPPORT 10 CM/H2O; TOTAL RESP RATE 32 resp/min
[2017-05-25 16:00] VITALS: BP 129/77
[2017-05-25 17:00] VITALS: BP 121/66
[2017-05-25 18:00] VITALS: BP 116/64
[2017-05-26 05:43] LABS: HEMATOCRIT 32.6 % (36.0-46.0); HEMOGLOBIN 10.2 G/DL (11.9-15.5); MCH 29.5 PG (29.0-34.0); MCHC 31.3 G/DL (30.0-36.0); MCV 94.2 FL (83-99); NRBC (%) 0.2 /100 WBC (0-0); PLATELET COUNT 210 K/uL (156-360); RBC DIS.WIDTH-CV 16.8 % (11.8-14.6); RBC DIS.WIDTH-SD 57.7 % (39-53); RED BLOOD COUNT 3.46 M/uL (3.80-5.20)
[2017-05-26 06:27] LABS: CHLORIDE 110 MEQ/L (99-109); CREATININE 1.1 MG/DL (0.6-1.3); GFR ESTIMATE (CALCULATED) 53 mL/min/; GLUCOSE 292 mg/dL (70-99); SODIUM 144 MEQ/L (136-147); UREA NITROGEN (BUN) 58 mg/dL (9-23)
[2017-05-26 08:00] VITALS: BP 153/62
[2017-05-26 13:00] VITALS: BP 153/62
[2017-05-26 20:00] VITALS: BP 149/64
[2017-05-27] VITALS (8 sets, daily range): BP systolic 0–158; BP diastolic 0–77
[2017-05-27 08:25] LABS: BASOPHIL (%) 0.1 % (0-1); EOSINOPHIL (%) 0.4 % (0-5); EOSINOPHIL COUNT 0.1 K/uL (0-0.3); HEMATOCRIT 31.7 % (36.0-46.0); HEMOGLOBIN 9.8 G/DL (11.9-15.5); IMMATURE GRANULOCYTE (%) 2.6 % (0.0-0.7); LYMPHOCYTE (%) 5.6 % (15-42); LYMPHOCYTE COUNT 0.8 K/uL (1.0-2.8); MCH 29.4 PG (29.0-34.0); MCHC 30.9 G/DL (30.0-36.0); MCV 95.2 FL (83-99); MONOCYTE COUNT 0.7 K/uL (0-0.8); NEUTROPHIL (%) 86.3 % (45-76); NEUTROPHIL COUNT 11.5 K/uL (1.8-6.4); NRBC (%) 0.1 /100 WBC (0-0); PLATELET COUNT 229 K/uL (156-360); RBC DIS.WIDTH-CV 16.5 % (11.8-14.6); RBC DIS.WIDTH-SD 58.4 % (39-53); RED BLOOD COUNT 3.33 M/uL (3.80-5.20); WHITE BLOOD COUNT 13.3 K/uL (4.1-10.2)
[2017-05-27 08:59] LABS: CHLORIDE 116 mEq/L (99-109); MAGNESIUM 2.5 mg/dL (1.3-2.7); POTASSIUM 4.1 mEq/L (3.7-5.4); SODIUM 146 mEq/L (136-147)
[2017-05-27 09:00] LABS: GLUCOSE 259 mg/dL (70-99)
[2017-05-27 09:04] LABS: GFR ESTIMATE (CALCULATED) > 59 mL/min/
[2017-05-27 09:05] LABS: UREA NITROGEN (BUN) 67 mg/dL (9-23)
[2017-05-27 10:15] LABS: PHOSPHORUS 2.4 mg/dL (2.5-4.9)
[2017-05-28] VITALS (10 sets, daily range): BP systolic 102–183; BP diastolic 54–96
[2017-05-28 05:52] LABS: BASOPHIL (%) 0.1 % (0-1); EOSINOPHIL (%) 0.7 % (0-5); EOSINOPHIL COUNT 0.1 K/uL (0-0.3); HEMOGLOBIN 9.5 G/DL (11.9-15.5); IMMATURE GRANULOCYTE (%) 1.8 % (0.0-0.7); LYMPHOCYTE (%) 2.5 % (15-42); LYMPHOCYTE COUNT 0.4 K/uL (1.0-2.8); MCH 29.6 PG (29.0-34.0); MCHC 30.6 G/DL (30.0-36.0); MCV 96.6 FL (83-99); MONOCYTE (%) 3.8 % (3-12); MONOCYTE COUNT 0.6 K/uL (0-0.8); NEUTROPHIL (%) 91.1 % (45-76); NRBC (%) 0.1 /100 WBC (0-0); PLATELET COUNT 228 K/uL (156-360); RBC DIS.WIDTH-CV 16.8 % (11.8-14.6); RBC DIS.WIDTH-SD 59.4 % (39-53); RED BLOOD COUNT 3.21 M/uL (3.80-5.20); WHITE BLOOD COUNT 16.5 K/uL (4.1-10.2)
[2017-05-28 06:14] LABS: CHLORIDE 115 MEQ/L (99-109); GFR ESTIMATE (CALCULATED) > 59 mL/min/; GLUCOSE 309 mg/dL (70-99); MAGNESIUM 2.6 mg/dl (1.3-2.7); PHOSPHORUS 2.1 mg/dL (2.5-4.9); POTASSIUM 4.2 MEQ/L (3.7-5.4); SODIUM 150 MEQ/L (136-147); UREA NITROGEN (BUN) 62 mg/dL (9-23)
[2017-05-29] VITALS (7 sets, daily range): BP systolic 106–153; BP diastolic 50–97
[2017-05-29 05:10] LABS: BICARBONATE 29.1 mEq/L (22-26); COMMENTS - BLOOD GASES C+A+; PCO2 40 mm Hg (35-45); PO2 66 mm Hg (80-100); pH 7.47 (7.35-7.45)
[2017-05-29 05:11] LABS: DEVICE VENTILATOR; FI02 45 %; INSPIRATION TIME 0.9 seconds; MECHANICAL RATE 10 resp/min; MODE AC VC+; PEEP 8 CM/H20; TIDAL VOLUME 450 ML; TOTAL RESP RATE 27 resp/min
[2017-05-29 05:51] LABS: BASOPHIL (%) 0.1 % (0-1); EOSINOPHIL (%) 0.2 % (0-5); HEMOGLOBIN 8.9 G/DL (11.9-15.5); IMMATURE GRANULOCYTE (%) 1.1 % (0.0-0.7); LYMPHOCYTE (%) 3.5 % (15-42); LYMPHOCYTE COUNT 0.5 K/uL (1.0-2.8); MCHC 30.7 G/DL (30.0-36.0); MCV 97.6 FL (83-99); MONOCYTE COUNT 0.4 K/uL (0-0.8); NEUTROPHIL (%) 92.1 % (45-76); NEUTROPHIL COUNT 12.1 K/uL (1.8-6.4); PLATELET COUNT 181 K/uL (156-360); RBC DIS.WIDTH-CV 17.2 % (11.8-14.6); RED BLOOD COUNT 2.97 M/uL (3.80-5.20); WHITE BLOOD COUNT 13.1 K/uL (4.1-10.2)
[2017-05-29 06:21] LABS: CHLORIDE 117 MEQ/L (99-109); CREATININE 1.1 MG/DL (0.6-1.3); GFR ESTIMATE (CALCULATED) 53 mL/min/; GLUCOSE 385 mg/dL (70-99); MAGNESIUM 2.5 mg/dl (1.3-2.7); POTASSIUM 4.1 MEQ/L (3.7-5.4); SODIUM 154 MEQ/L (136-147); UREA NITROGEN (BUN) 61 mg/dL (9-23)
[2017-05-29 06:22] LABS: PHOSPHORUS 2.9 mg/dL (2.5-4.9)
[2017-05-30] VITALS (7 sets, daily range): BP systolic 100–132; BP diastolic 55–87
[2017-05-30 06:43] LABS: CHLORIDE 116 MEQ/L (99-109); GFR ESTIMATE (CALCULATED) > 59 mL/min/; GLUCOSE 308 mg/dL (70-99); MAGNESIUM 2.6 mg/dl (1.3-2.7); PHOSPHORUS 3.5 mg/dL (2.5-4.9); POTASSIUM 4.9 MEQ/L (3.7-5.4); SODIUM 154 MEQ/L (136-147); UREA NITROGEN (BUN) 67 mg/dL (9-23)
[2017-05-30 07:17] LABS: BASOPHIL (%) 0.1 % (0-1); EOSINOPHIL (%) 0.5 % (0-5); EOSINOPHIL COUNT 0.1 K/uL (0-0.3); HEMATOCRIT 27.3 % (36.0-46.0); HEMOGLOBIN 8.1 G/DL (11.9-15.5); IMMATURE GRANULOCYTE (%) 1.2 % (0.0-0.7); LYMPHOCYTE (%) 3.8 % (15-42); LYMPHOCYTE COUNT 0.4 K/uL (1.0-2.8); MCH 29.8 PG (29.0-34.0); MCHC 29.7 G/DL (30.0-36.0); MCV 100.4 FL (83-99); MONOCYTE (%) 2.8 % (3-12); MONOCYTE COUNT 0.3 K/uL (0-0.8); NEUTROPHIL (%) 91.6 % (45-76); NEUTROPHIL COUNT 10.3 K/uL (1.8-6.4); PLATELET COUNT 170 K/uL (156-360); RBC DIS.WIDTH-CV 17.2 % (11.8-14.6); RED BLOOD COUNT 2.72 M/uL (3.80-5.20); WHITE BLOOD COUNT 11.3 K/uL (4.1-10.2)
[2017-05-30 17:16] LABS: BASOPHIL (%) 0.1 % (0-1); EOSINOPHIL (%) 0.8 % (0-5); EOSINOPHIL COUNT 0.1 K/uL (0-0.3); HEMATOCRIT 27.2 % (36.0-46.0); HEMOGLOBIN 8.3 G/DL (11.9-15.5); IMMATURE GRANULOCYTE (%) 0.5 % (0.0-0.7); LYMPHOCYTE (%) 7.2 % (15-42); LYMPHOCYTE COUNT 0.8 K/uL (1.0-2.8); MCH 30.7 PG (29.0-34.0); MCHC 30.5 G/DL (30.0-36.0); MCV 100.7 FL (83-99); MONOCYTE COUNT 0.5 K/uL (0-0.8); NEUTROPHIL (%) 87.4 % (45-76); PLATELET COUNT 171 K/uL (156-360); RBC DIS.WIDTH-CV 17.1 % (11.8-14.6); RBC DIS.WIDTH-SD 62.5 % (39-53); WHITE BLOOD COUNT 11.4 K/uL (4.1-10.2)
[2017-05-30 17:38] LABS: CHLORIDE 116 MEQ/L (99-109); GFR ESTIMATE (CALCULATED) > 59 mL/min/; GLUCOSE 200 mg/dL (70-99); POTASSIUM 4.6 MEQ/L (3.7-5.4); SODIUM 150 MEQ/L (136-147); UREA NITROGEN (BUN) 67 mg/dL (9-23)
[2017-05-31] VITALS: BP 116/55
[2017-05-31 04:00] VITALS: BP 107/57
[2017-05-31 06:00] VITALS: BP 107/57
[2017-05-31 09:35] LABS: BASOPHIL (%) 0.1 % (0-1); EOSINOPHIL (%) 0.5 % (0-5); EOSINOPHIL COUNT 0.1 K/uL (0-0.3); HEMATOCRIT 29.5 % (36.0-46.0); HEMOGLOBIN 8.9 G/DL (11.9-15.5); IMMATURE GRANULOCYTE (%) 0.8 % (0.0-0.7); LYMPHOCYTE (%) 4.1 % (15-42); LYMPHOCYTE COUNT 0.5 K/uL (1.0-2.8); MCH 30.3 PG (29.0-34.0); MCHC 30.2 G/DL (30.0-36.0); MCV 100.3 FL (83-99); MONOCYTE (%) 4.2 % (3-12); MONOCYTE COUNT 0.5 K/uL (0-0.8); NEUTROPHIL (%) 90.3 % (45-76); NEUTROPHIL COUNT 10.8 K/uL (1.8-6.4); PLATELET COUNT 206 K/uL (156-360); RBC DIS.WIDTH-SD 61.9 % (39-53); RED BLOOD COUNT 2.94 M/uL (3.80-5.20); WHITE BLOOD COUNT 11.9 K/uL (4.1-10.2)
[2017-05-31 09:45] VITALS: BP 131/66
[2017-05-31 09:56] LABS: PTT 24.4 SEC (25-37)
[2017-05-31 10:41] LABS: CHLORIDE 115 MEQ/L (99-109); GFR ESTIMATE (CALCULATED) > 59 mL/min/; GLUCOSE 145 mg/dL (70-99); MAGNESIUM 2.9 mg/dl (1.3-2.7); POTASSIUM 5.2 MEQ/L (3.7-5.4); SODIUM 152 MEQ/L (136-147); UREA NITROGEN (BUN) 72 mg/dL (9-23)
[2017-05-31 20:00] VITALS: BP 128/63
[2017-06-01] VITALS (11 sets, daily range): BP systolic 120–164; BP diastolic 61–98
[2017-06-01 05:41] LABS: HEMATOCRIT 28.4 % (36.0-46.0); HEMOGLOBIN 8.5 G/DL (11.9-15.5); MCH 30.5 PG (29.0-34.0); MCHC 29.9 G/DL (30.0-36.0); MCV 101.8 FL (83-99); PLATELET COUNT 204 K/uL (156-360); RBC DIS.WIDTH-SD 62.6 % (39-53); RED BLOOD COUNT 2.79 M/uL (3.80-5.20); WHITE BLOOD COUNT 13.7 K/uL (4.1-10.2)
[2017-06-01 11:50] LABS: CHLORIDE 114 MEQ/L (99-109); GFR ESTIMATE (CALCULATED) > 59 mL/min/; GLUCOSE 179 mg/dL (70-99); POTASSIUM 4.8 MEQ/L (3.7-5.4); SODIUM 150 MEQ/L (136-147); UREA NITROGEN (BUN) 77 mg/dL (9-23)
[2017-06-02] VITALS (23 sets, daily range): BP systolic 89–169; BP diastolic 51–95
[2017-06-02 06:21] LABS: HEMATOCRIT 28.8 % (36.0-46.0); HEMOGLOBIN 8.9 G/DL (11.9-15.5); MCH 31.1 PG (29.0-34.0); MCHC 30.9 G/DL (30.0-36.0); MCV 100.7 FL (83-99); NRBC (%) 0.1 /100 WBC (0-0); PLATELET COUNT 231 K/uL (156-360); RBC DIS.WIDTH-CV 17.4 % (11.8-14.6); RBC DIS.WIDTH-SD 63.6 % (39-53); RED BLOOD COUNT 2.86 M/uL (3.80-5.20); WHITE BLOOD COUNT 26.4 K/uL (4.1-10.2)
[2017-06-02 06:43] LABS: CHLORIDE 113 MEQ/L (99-109); CREATININE 1.1 MG/DL (0.6-1.3); GFR ESTIMATE (CALCULATED) 53 mL/min/; GLUCOSE 170 mg/dL (70-99); POTASSIUM 4.8 MEQ/L (3.7-5.4); SODIUM 151 MEQ/L (136-147); UREA NITROGEN (BUN) 72 mg/dL (9-23)
[2017-06-02 11:21] LABS: APPEARANCE CLOUDY ((CLEAR)); BILIRUBIN NEGATIVE; BLOOD LARGE; COLOR AMBER ((YELLOW)); GLUCOSE (STRIP) NEGATIVE; KETONES NEGATIVE; LEUKOCYTES SMALL; NITRITE NEGATIVE; PROTEIN (STRIP) 100; SPECIFIC GRAVITY 1.019 (1.000-1.030)
[2017-06-02 11:36] LABS: BACTERIA RARE /HPF; CALCIUM OXALATE CRYSTALS 3+ /HPF; EPITHELIAL CELLS 1+ /HPF; MUCUS 2+ /LPF; RED BLOOD CELLS TNTC /HPF (0-5)
[2017-06-02 18:45] LABS: CHLORIDE 113 MEQ/L (99-109); POTASSIUM 5.2 MEQ/L (3.7-5.4); SODIUM 147 MEQ/L (136-147)
[2017-06-02 18:51] LABS: CREATININE 1.2 MG/DL (0.6-1.3); GFR ESTIMATE (CALCULATED) 48 mL/min/; GLUCOSE 234 mg/dL (70-99); UREA NITROGEN (BUN) 74 mg/dL (9-23)
[2017-06-02 19:35] LABS: UR CREATININE CONCENTRATION 50.5 MG/DL
[2017-06-02 23:46] LABS: BASE EXCESS -2.9 mEq/L (-3 to +3); CARBOXY HGB 2.3 % (0-5); METHEMOGLOBIN 1.9 % (0-1.5)
[2017-06-02 23:47] LABS: BICARBONATE 23.2 mEq/L (22-26); COMMENTS - BLOOD GASES C+; DEVICE VENT; FI02 100 %; MECHANICAL RATE 20 resp/min; MODE BILEVEL; PCO2 46 mm Hg (35-45); PO2 205 mm Hg (80-100); PRESSURE CONTROL VENTILATION 25 CM H20; SITE LR; TOTAL RESP RATE 28 resp/min; pH 7.31 (7.35-7.45)
[2017-06-02 23:48] LABS: INSPIRATION TIME 0.9 seconds; PRES. SUPPORT 15 CM/H2O
[2017-06-02 23:50] LABS: PEEP 12 CM/H20
[2017-06-03] VITALS (21 sets, daily range): BP systolic 87–164; BP diastolic 48–95
[2017-06-03 05:44] LABS: BASE EXCESS -3.9 mEq/L (-3 to +3); BICARBONATE 22.6 mEq/L (22-26); CARBOXY HGB 2.1 % (0-5); METHEMOGLOBIN 2.1 % (0-1.5); PCO2 48 mm Hg (35-45)
[2017-06-03 05:45] LABS: COMMENTS - BLOOD GASES C; DEVICE VENT; FI02 60 %; MECHANICAL RATE 20 resp/min; MODE BILEVEL; PO2 158 mm Hg (80-100); SITE RB; TOTAL RESP RATE 25 resp/min; pH 7.28 (7.35-7.45)
[2017-06-03 05:46] LABS: INSPIRATION TIME 0.9 seconds; PEEP 12 CM/H20; PRESSURE CONTROL VENTILATION 25 CM H20
[2017-06-03 09:50] LABS: BASOPHIL (%) 0.1 % (0-1); EOSINOPHIL (%) 0 % (0-5); HEMOGLOBIN 7.8 G/DL (11.9-15.5); IMMATURE GRANULOCYTE (%) 0.7 % (0.0-0.7); LYMPHOCYTE (%) 0.7 % (15-42); LYMPHOCYTE COUNT 0.1 K/uL (1.0-2.8); MCV 103.2 FL (83-99); MONOCYTE (%) 0.6 % (3-12); MONOCYTE COUNT 0.1 K/uL (0-0.8); NEUTROPHIL (%) 97.9 % (45-76); NEUTROPHIL COUNT 15.9 K/uL (1.8-6.4); NRBC (%) 0.1 /100 WBC (0-0); PLATELET COUNT 167 K/uL (156-360); RED BLOOD COUNT 2.52 M/uL (3.80-5.20); WHITE BLOOD COUNT 16.2 K/uL (4.1-10.2)
[2017-06-03 10:12] LABS: INTER. NORMALIZED RATIO 1.1
[2017-06-03 10:14] LABS: PTT 28.4 SEC (25-37)
[2017-06-03 10:15] LABS: ALBUMIN 2.1 G/DL (3.2-4.8); CHLORIDE 116 MEQ/L (99-109); MAGNESIUM 2.6 mg/dl (1.3-2.7); POTASSIUM 4.9 MEQ/L (3.7-5.4); SODIUM 149 MEQ/L (136-147)
[2017-06-03 10:21] LABS: ALKALINE PHOSPHATASE 112 IU/L (3-129); ALT (GPT) 61 IU/L (3-49); AST (GOT) 93 IU/L (2-34); CREATININE 1.5 MG/DL (0.6-1.3); GFR ESTIMATE (CALCULATED) 37 mL/min/; GLUCOSE 149 mg/dL (70-99); PHOSPHORUS 6.4 mg/dL (2.5-4.9); TOTAL PROTEIN 5.4 G/DL (6.4-8.3); UREA NITROGEN (BUN) 79 mg/dL (9-23)
[2017-06-03 10:30] LABS: FIBRINOGEN 869 mg/dL (150-450)
[2017-06-03 11:03] LABS: HIGH-SENS C-REACTIVE PROTEIN > 8.00 MG/DL (0.02-0.20)
[2017-06-04] VITALS (29 sets, daily range): BP systolic 90–176; BP diastolic 60–180
[2017-06-04 06:53] LABS: HEMATOCRIT 23.2 % (36.0-46.0); MCH 30.5 PG (29.0-34.0); MCHC 29.3 G/DL (30.0-36.0); NRBC (%) 0.3 /100 WBC (0-0); PLATELET COUNT 153 K/uL (156-360); RBC DIS.WIDTH-CV 18.7 % (11.8-14.6); RBC DIS.WIDTH-SD 70.5 % (39-53); RED BLOOD COUNT 2.23 M/uL (3.80-5.20); WHITE BLOOD COUNT 10.1 K/uL (4.1-10.2)
[2017-06-04 06:54] LABS: HEMOGLOBIN 6.8 G/DL (11.9-15.5)
[2017-06-04 09:24] LABS: INTER. NORMALIZED RATIO 1.3
[2017-06-04 09:40] LABS: BASOPHIL (%) 0.1 % (0-1); EOSINOPHIL (%) 0 % (0-5); HEMATOCRIT 22.3 % (36.0-46.0); IMMATURE GRANULOCYTE (%) 0.7 % (0.0-0.7); LYMPHOCYTE (%) 1.6 % (15-42); LYMPHOCYTE COUNT 0.2 K/uL (1.0-2.8); MCHC 29.6 G/DL (30.0-36.0); MCV 104.7 FL (83-99); MONOCYTE COUNT 0.2 K/uL (0-0.8); NEUTROPHIL (%) 95.6 % (45-76); NEUTROPHIL COUNT 10.3 K/uL (1.8-6.4); NRBC (%) 0.6 /100 WBC (0-0); PLATELET COUNT 164 K/uL (156-360); RBC DIS.WIDTH-CV 18.9 % (11.8-14.6); RBC DIS.WIDTH-SD 71.7 % (39-53); RED BLOOD COUNT 2.13 M/uL (3.80-5.20); WHITE BLOOD COUNT 10.8 K/uL (4.1-10.2)
[2017-06-04 09:45] LABS: HEMOGLOBIN 6.6 G/DL (11.9-15.5)
[2017-06-04 11:34] LABS: ALBUMIN 2.6 G/DL (3.2-4.8); ALKALINE PHOSPHATASE 95 IU/L (3-129); CHLORIDE 113 MEQ/L (99-109); CREATININE 1.9 MG/DL (0.6-1.3); GFR ESTIMATE (CALCULATED) 28 mL/min/; GLUCOSE 154 mg/dL (70-99); MAGNESIUM 2.8 mg/dl (1.3-2.7); PHOSPHORUS 8.1 mg/dL (2.5-4.9); POTASSIUM 4.9 MEQ/L (3.7-5.4); SODIUM 145 MEQ/L (136-147); TOTAL BILIRUBIN 0.9 MG/DL (0.0-1.0); TOTAL PROTEIN 5.8 G/DL (6.4-8.3); UREA NITROGEN (BUN) 93 mg/dL (9-23)
[2017-06-04 11:40] LABS: ALT (GPT) 137 IU/L (3-49); AST (GOT) 249 IU/L (2-34); HIGH-SENS C-REACTIVE PROTEIN > 8.00 MG/DL (0.02-0.20)
[2017-06-04 13:32] LABS: BASE EXCESS -12.5 mEq/L (-3 to +3); BICARBONATE 13.6 mEq/L (22-26); COMMENTS - BLOOD GASES A+C+; DEVICE VENT; FI02 100 %; METHEMOGLOBIN 1.5 % (0-1.5); PCO2 31 mm Hg (35-45); PO2 118 mm Hg (80-100); SITE RA; pH 7.25 (7.35-7.45)
[2017-06-04 13:33] LABS: INSPIRATION TIME 1.2 seconds; MECHANICAL RATE 20 resp/min; MODE ACPC; PEEP 8 CM/H20; TIDAL VOLUME 450 ML; TOTAL RESP RATE 28 resp/min
[2017-06-04 16:49] LABS: BASE EXCESS -19.2 mEq/L (-3 to +3); BICARBONATE 11.1 mEq/L (22-26); CARBOXY HGB 1.9 % (0-5); METHEMOGLOBIN 1.3 % (0-1.5); PCO2 45 mm Hg (35-45); PO2 83 mm Hg (80-100)
[2017-06-04 16:50] LABS: COMMENTS - BLOOD GASES C+; DEVICE VENT; FI02 100 %; INSPIRATION TIME 1.2 seconds; MECHANICAL RATE 25 resp/min; MODE A/C; PRESSURE CONTROL VENTILATION 30 CM H20; SITE A LINE; TOTAL RESP RATE 26 resp/min
[2017-06-04 16:51] LABS: PEEP 8 CM/H20
[2017-06-04 17:41] LABS: C4 COMPLEMENT 31 MG/DL (10-40)
[2017-06-04 18:54] LABS: LIPASE 112 U/L (1.0-51.0); TRIGLYCERIDES 398 MG/DL (Normal: <150)
[2017-06-04 19:05] LABS: HEMATOCRIT 34.3 % (36.0-46.0); MCV 103.9 FL (83-99)
[2017-06-04 19:06] LABS: HEMOGLOBIN 10.1 G/DL (11.9-15.5)
[2017-06-04 20:12] LABS: INTER. NORMALIZED RATIO 1.3
[2017-06-04 20:14] LABS: PTT 30.6 SEC (25-37)
[2017-06-04 20:20] LABS: FIBRINOGEN 599 mg/dL (150-450)
[2017-06-04 21:01] LABS: BASE EXCESS -10.4 mEq/L (-3 to +3); CARBOXY HGB 2.1 % (0-5); METHEMOGLOBIN 1.9 % (0-1.5); PCO2 47 mm Hg (35-45)
[2017-06-04 21:02] LABS: BICARBONATE 17.5 mEq/L (22-26); PO2 106 mm Hg (80-100)
[2017-06-04 21:03] LABS: COMMENTS - BLOOD GASES C+; DEVICE VEMT; FI02 100 %; INSPIRATION TIME 1.2 seconds; MECHANICAL RATE 25 resp/min; MODE A/C; PEEP 8 CM/H20; PRESSURE CONTROL VENTILATION 30 CM H20; SITE A LINE; TOTAL RESP RATE 25 resp/min; pH 7.18 (7.35-7.45)
[2017-06-05 01:09] LABS: BICARBONATE 18.4 mEq/L (22-26); METHEMOGLOBIN 1.9 % (0-1.5); PCO2 46 mm Hg (35-45); PO2 77 mm Hg (80-100); pH 7.21 (7.35-7.45)
[2017-06-05 01:10] LABS: DEVICE VENT; FI02 80 %; MECHANICAL RATE 25 resp/min; MODE ACPC; PEEP 8 CM/H20; PRESSURE CONTROL VENTILATION 30 CM H20; SITE A-LINE
[2017-06-05 02:28] LABS: HEMATOCRIT 28.9 % (36.0-46.0); MCH 30.5 PG (29.0-34.0); MCHC 31.1 G/DL (30.0-36.0); NRBC (%) 1.3 /100 WBC (0-0); RBC DIS.WIDTH-SD 70.7 % (39-53); WHITE BLOOD COUNT 24.9 K/uL (4.1-10.2)
[2017-06-05 02:40] LABS: ALBUMIN 3.6 g/dL (3.2-4.8)
[2017-06-05 02:41] LABS: CHLORIDE 110 mEq/L (99-109); POTASSIUM 5.2 mEq/L (3.7-5.4); SODIUM 146 mEq/L (136-147)
[2017-06-05 02:42] LABS: MAGNESIUM 2.6 mg/dL (1.3-2.7)
[2017-06-05 02:47] LABS: CREATININE 1.6 mg/dL (0.6-1.3); GFR ESTIMATE (CALCULATED) 35 mL/min/
[2017-06-05 02:48] LABS: UREA NITROGEN (BUN) 71 mg/dL (9-23)
[2017-06-05 02:58] LABS: GLUCOSE 237 mg/dL (70-99); PHOSPHORUS 6.5 mg/dL (2.5-4.9)
[2017-06-05 03:15] LABS: PLATELET COUNT UNABLE TO REPORT K/uL (156-360)
[2017-06-05 03:24] LABS: ABS NEUTROPHIL COUNT 22.9; ANISOCYTOSIS 1+; BAND NEUTROPHILS 7.4 % (0-8.0); BURR CELLS 2+; EOSINOPHIL ABS CT 0; HEMATOLOGY COMMENT 1 SN; HYPOCHROMASIA 2+; LYMPHOCYTES 0.5 % (15.0-45.0); MACROCYTES 1+; METAMYELOCYTES 0.5 %; MONOCYTES 5.9 % (0-9.0); MYELOCYTES 1.1 %; NUCLEATED RBC'S 4.8; PLAT.SUFFICIENCY ADEQUATE; POIKILOCYTOSIS 3+; POLYCHROMASIA 1+; SEG.NEUTROPHILS 84.6 % (46.0-76.0); TARGET CELLS 1+; TEAR DROP CELLS 1+
[2017-06-05 03:25] LABS: RED BLOOD COUNT 2.95 M/uL (3.80-5.20)
[2017-06-05 04:00] VITALS: BP 172/83
[2017-06-05 06:48] LABS: HEMATOCRIT 28.8 % (36.0-46.0); HEMOGLOBIN 8.9 G/DL (11.9-15.5); MCH 30.5 PG (29.0-34.0); MCHC 30.9 G/DL (30.0-36.0); MCV 98.6 FL (83-99); PLATELET COUNT 202 K/uL (156-360); RBC DIS.WIDTH-CV 19.9 % (11.8-14.6); RBC DIS.WIDTH-SD 70.8 % (39-53); RED BLOOD COUNT 2.92 M/uL (3.80-5.20); WHITE BLOOD COUNT 26.1 K/uL (4.1-10.2)
[2017-06-05 06:51] LABS: INTER. NORMALIZED RATIO 1.4
[2017-06-05 07:23] LABS: BASOPHIL (%) 0.2 % (0-1); EOSINOPHIL (%) 0 % (0-5); IMMATURE GRANULOCYTE (%) 0.8 % (0.0-0.7); LYMPHOCYTE (%) 0.5 % (15-42); LYMPHOCYTE COUNT 0.1 K/uL (1.0-2.8); MONOCYTE (%) 1.1 % (3-12); MONOCYTE COUNT 0.3 K/uL (0-0.8); NEUTROPHIL (%) 97.4 % (45-76); NEUTROPHIL COUNT 25.4 K/uL (1.8-6.4)
[2017-06-05 07:24] LABS: ALBUMIN 3.3 G/DL (3.2-4.8); CHLORIDE 106 MEQ/L (99-109); CREATININE 1.4 MG/DL (0.6-1.3); GFR ESTIMATE (CALCULATED) 40 mL/min/; GLUCOSE 247 mg/dL (70-99); MAGNESIUM 2.7 mg/dl (1.3-2.7); POTASSIUM 4.9 MEQ/L (3.7-5.4); SODIUM 143 MEQ/L (136-147); TOTAL PROTEIN 6.1 G/DL (6.4-8.3); UREA NITROGEN (BUN) 60 mg/dL (9-23)
[2017-06-05 07:25] LABS: PHOSPHORUS 5.2 mg/dL (2.5-4.9); TOTAL BILIRUBIN 2.2 MG/DL (0.0-1.0)
[2017-06-05 07:26] LABS: ALKALINE PHOSPHATASE 124 IU/L (3-129); ALT (GPT) 2544 IU/L (3-49); AST (GOT) 6698 IU/L (2-34)
[2017-06-05 08:00] VITALS: BP 189/85
[2017-06-05 08:10] LABS: ALBUMIN 3.2 G/DL (3.2-4.8); CHLORIDE 107 MEQ/L (99-109); CREATININE 1.3 MG/DL (0.6-1.3); GFR ESTIMATE (CALCULATED) 44 mL/min/; GLUCOSE 246 mg/dL (70-99); PHOSPHORUS 5.2 mg/dL (2.5-4.9); SODIUM 142 MEQ/L (136-147); UREA NITROGEN (BUN) 60 mg/dL (9-23); VANCOMYCIN, TROUGH 15.3 MCG/ML (10-20)
[2017-06-05 11:35] LABS: BASE EXCESS -11.1 mEq/L (-3 to +3); BICARBONATE 15.5 mEq/L (22-26); CARBOXY HGB 3.6 % (0-5); METHEMOGLOBIN 1.5 % (0-1.5); PCO2 37 mm Hg (35-45); PO2 61 mm Hg (80-100); pH 7.23 (7.35-7.45)
[2017-06-05 11:36] LABS: COMMENTS - BLOOD GASES A+; DEVICE VENT; FI02 80 %; MECHANICAL RATE 25 resp/min; MODE AC/PC; SITE ALINE; TOTAL RESP RATE 25 resp/min
[2017-06-05 11:37] LABS: INSPIRATION TIME 1.2 seconds; PEEP 8 CM/H20; PRESSURE CONTROL VENTILATION 30 CM H20
[2017-06-05 12:33] LABS: HEMOGLOBIN 7.9 G/DL (11.9-15.5); MCH 29.7 PG (29.0-34.0); MCHC 30.4 G/DL (30.0-36.0); MCV 97.7 FL (83-99); PLATELET COUNT 155 K/uL (156-360); RBC DIS.WIDTH-CV 19.9 % (11.8-14.6); RBC DIS.WIDTH-SD 70.4 % (39-53); RED BLOOD COUNT 2.66 M/uL (3.80-5.20); WHITE BLOOD COUNT 25.1 K/uL (4.1-10.2)
[2017-06-05 12:59] LABS: ALBUMIN 3.5 G/DL (3.2-4.8); CHLORIDE 105 MEQ/L (99-109); CREATININE 1.3 MG/DL (0.6-1.3); GFR ESTIMATE (CALCULATED) 44 mL/min/; GLUCOSE 275 mg/dL (70-99); PHOSPHORUS 5.1 mg/dL (2.5-4.9); POTASSIUM 4.9 MEQ/L (3.7-5.4); SODIUM 140 MEQ/L (136-147); UREA NITROGEN (BUN) 55 mg/dL (9-23)
[2017-06-05 13:15] LABS: BASOPHIL (%) 0.1 % (0-1); EOSINOPHIL (%) 0 % (0-5); IMMATURE GRANULOCYTE (%) 0.9 % (0.0-0.7); LYMPHOCYTE (%) 0.8 % (15-42); LYMPHOCYTE COUNT 0.2 K/uL (1.0-2.8); MONOCYTE (%) 1.2 % (3-12); MONOCYTE COUNT 0.3 K/uL (0-0.8); NEUTROPHIL COUNT 24.4 K/uL (1.8-6.4)
[2017-06-05 16:30] VITALS: BP 117/65
[2017-06-05 16:45] VITALS: BP 117/64
[2017-06-05 17:30] VITALS: BP 111/58
[2017-06-05 18:41] LABS: ALBUMIN 3.4 G/DL (3.2-4.8); CHLORIDE 104 MEQ/L (99-109); MAGNESIUM 2.5 mg/dl (1.3-2.7); POTASSIUM 4.6 MEQ/L (3.7-5.4); SODIUM 140 MEQ/L (136-147)
[2017-06-05 18:51] LABS: CREATININE 1.2 MG/DL (0.6-1.3); GFR ESTIMATE (CALCULATED) 48 mL/min/; GLUCOSE 224 mg/dL (70-99); PHOSPHORUS 4.6 mg/dL (2.5-4.9); PHOSPHORUS 4.7 mg/dL (2.5-4.9); UREA NITROGEN (BUN) 49 mg/dL (9-23)
[2017-06-05 23:00] VITALS: BP 164/110
[2017-06-06] VITALS: BP 165/79
[2017-06-06 01:05] LABS: BASOPHIL (%) 0.1 % (0-1); EOSINOPHIL (%) 0 % (0-5); HEMATOCRIT 26.1 % (36.0-46.0); HEMOGLOBIN 8.4 G/DL (11.9-15.5); IMMATURE GRANULOCYTE (%) 0.8 % (0.0-0.7); LYMPHOCYTE (%) 1.1 % (15-42); LYMPHOCYTE COUNT 0.2 K/uL (1.0-2.8); MAGNESIUM 2.3 mg/dL (1.3-2.7); MCH 30.9 PG (29.0-34.0); MCHC 32.2 G/DL (30.0-36.0); MONOCYTE (%) 0.9 % (3-12); MONOCYTE COUNT 0.2 K/uL (0-0.8); NEUTROPHIL (%) 97.1 % (45-76); NEUTROPHIL COUNT 17.7 K/uL (1.8-6.4); RBC DIS.WIDTH-CV 18.2 % (11.8-14.6); RBC DIS.WIDTH-SD 62.6 % (39-53); RED BLOOD COUNT 2.72 M/uL (3.80-5.20); WHITE BLOOD COUNT 18.3 K/uL (4.1-10.2)
[2017-06-06 01:17] LABS: PHOSPHORUS 3.3 mg/dL (2.5-4.9)
[2017-06-06 01:52] LABS: PLAT.SUFFICIENCY DECREASED; PLATELET COUNT 74 K/uL (156-360)
[2017-06-06 08:00] VITALS: BP 136/71
[2017-06-06 08:33] LABS: HEMATOCRIT 24.7 % (36.0-46.0); HEMOGLOBIN 7.7 G/DL (11.9-15.5); MCH 30.3 PG (29.0-34.0); MCHC 31.2 G/DL (30.0-36.0); MCV 97.2 FL (83-99); NRBC (%) 1.5 /100 WBC (0-0); PLATELET COUNT 68 K/uL (156-360); RBC DIS.WIDTH-SD 63.5 % (39-53); RED BLOOD COUNT 2.54 M/uL (3.80-5.20); WHITE BLOOD COUNT 18.3 K/uL (4.1-10.2)
[2017-06-06 08:52] LABS: CHLORIDE 105 MEQ/L (99-109); MAGNESIUM 2.4 mg/dl (1.3-2.7); POTASSIUM 4.8 MEQ/L (3.7-5.4); SODIUM 140 MEQ/L (136-147); TOTAL BILIRUBIN 2.4 MG/DL (0.0-1.0)
[2017-06-06 09:01] LABS: ABS NEUTROPHIL COUNT 17.3; ANISOCYTOSIS 1+; ATYPICAL LYMPHOCYTE 0.9 %; BAND NEUTROPHILS 13.5 % (0-8.0); EOSINOPHIL ABS CT 0; LYMPHOCYTES 0.9 % (15.0-45.0); METAMYELOCYTES 0.9 %; MONOCYTES 1.8 % (0-9.0); MYELOCYTES 0.9 %; NUCLEATED RBC'S 4.5; PLAT.SUFFICIENCY DECREASED; SEG.NEUTROPHILS 81.1 % (46.0-76.0); TOX.VACUOLIZATION 1+
[2017-06-06 09:04] LABS: ALKALINE PHOSPHATASE 142 IU/L (3-129); CREATININE 0.8 MG/DL (0.6-1.3); GFR ESTIMATE (CALCULATED) > 59 mL/min/; GLUCOSE 238 mg/dL (70-99); PHOSPHORUS 3.8 mg/dL (2.5-4.9); TOTAL PROTEIN 5.6 G/DL (6.4-8.3); UREA NITROGEN (BUN) 35 mg/dL (9-23)
[2017-06-06 09:08] LABS: ALT (GPT) 1693 IU/L (3-49); AST (GOT) 3338 IU/L (2-34)
[2017-06-06 14:07] LABS: Neutrophil Cytoplasmic Aby Negative (Negative)
[2017-06-06 21:34] LABS: GLOMERULAR BASEMENT MEMB ABY+ <1.0 AI (<1.0)
== END 2017-06-06 18:55 | DRG 4 ==
LOC: EME → EDBD 11:44 → EME 11:44 → EDOF 14:58 → ENRESERV 15:01 → 5WEST 16:40 → 4WEST 05-13 11:22 → 5WEST 05-14 00:06 → ENRESERV 05-14 00:07 → 5WEST 05-14 00:13 → 4WEST 05-14 00:21
PROVIDERS: Emergency Medicine; Hospitalist; Internal Medicine; Internal Medicine Critical Care Medicine; Internal Medicine Nephrology; Internal Medicine Pulmonary Disease; Physician Assistant; Specialist; Surgery
PROC: 02H633Z Insertion of Infusion Device into Right Atrium, Percutaneous Approach (ICD-10-PCS; 2017-05-14)
PROC: 5A09557 Assistance with Respiratory Ventilation, Greater than 96 Consecutive Hours, Continuous Positive Airway Pressure (ICD-10-PCS; 2017-05-14)
PROC: 5A1955Z Respiratory Ventilation, Greater than 96 Consecutive Hours (ICD-10-PCS; 2017-05-20)
PROC: 0BH17EZ Insertion of Endotracheal Airway into Trachea, Via Natural or Artificial Opening (ICD-10-PCS; 2017-05-20)
PROC: 0B9F8ZX Drainage of Right Lower Lung Lobe, Via Natural or Artificial Opening Endoscopic, Diagnostic (ICD-10-PCS; 2017-05-21)
PROC: 0B9G8ZX Drainage of Left Upper Lung Lobe, Via Natural or Artificial Opening Endoscopic, Diagnostic (ICD-10-PCS; 2017-05-21)
PROC: 30233N1 Transfusion of Nonautologous Red Blood Cells into Peripheral Vein, Percutaneous Approach (ICD-10-PCS; 2017-05-21)
PROC: 0B110F4 Bypass Trachea to Cutaneous with Tracheostomy Device, Open Approach (ICD-10-PCS; principal; 2017-05-31)
PROC: 0DH63UZ Insertion of Feeding Device into Stomach, Percutaneous Approach (ICD-10-PCS; principal; 2017-05-31)
PROC: 0B9J8ZX Drainage of Left Lower Lung Lobe, Via Natural or Artificial Opening Endoscopic, Diagnostic (ICD-10-PCS; 2017-06-01)
PROC: 0B9F8ZX Drainage of Right Lower Lung Lobe, Via Natural or Artificial Opening Endoscopic, Diagnostic (ICD-10-PCS; 2017-06-01)
PROC: 02HV33Z Insertion of Infusion Device into Superior Vena Cava, Percutaneous Approach (ICD-10-PCS; 2017-06-03)
DX: J96.21 Acute and chronic respiratory failure with hypoxia (principal); J15.212 Pneumonia due to Methicillin resistant Staphylococcus aureus; A41.02 Sepsis due to Methicillin resistant Staphylococcus aureus; R65.21 Severe sepsis with septic shock; J18.9 Pneumonia, unspecified organism; Y95 Nosocomial condition; J44.1 Chronic obstructive pulmonary disease with (acute) exacerbation; J44.0 Chronic obstructive pulmonary disease with (acute) lower respiratory infection; N17.0 Acute kidney failure with tubular necrosis; Z51.5 Encounter for palliative care; K72.00 Acute and subacute hepatic failure without coma; K74.60 Unspecified cirrhosis of liver; R18.8 Other ascites; K92.1 Melena; I11.0 Hypertensive heart disease with heart failure; I50.33 Acute on chronic diastolic (congestive) heart failure; I25.110 Atherosclerotic heart disease of native coronary artery with unstable angina pectoris; D62 Acute posthemorrhagic anemia; E11.40 Type 2 diabetes mellitus with diabetic neuropathy, unspecified; E11.51 Type 2 diabetes mellitus with diabetic peripheral angiopathy without gangrene; E11.65 Type 2 diabetes mellitus with hyperglycemia; T38.0X5A Adverse effect of glucocorticoids and synthetic analogues, initial encounter; I27.20 Pulmonary hypertension, unspecified; I35.0 Nonrheumatic aortic (valve) stenosis; I42.9 Cardiomyopathy, unspecified; I48.0 Paroxysmal atrial fibrillation; J98.11 Atelectasis; I95.9 Hypotension, unspecified; R13.10 Dysphagia, unspecified; E87.2 Acidosis; E86.9 Volume depletion, unspecified; E87.0 Hyperosmolality and hypernatremia; E87.6 Hypokalemia; E78.5 Hyperlipidemia, unspecified; G89.29 Other chronic pain; G43.909 Migraine, unspecified, not intractable, without status migrainosus; M54.5 Low back pain; R11.2 Nausea with vomiting, unspecified; F32.9 Major depressive disorder, single episode, unspecified; F41.9 Anxiety disorder, unspecified; I25.2 Old myocardial infarction; E66.9 Obesity, unspecified; Z68.32 Body mass index [BMI] 32.0-32.9, adult; Z79.82 Long term (current) use of aspirin; Z82.49 Family history of ischemic heart disease and other diseases of the circulatory system; Z85.528 Personal history of other malignant neoplasm of kidney; Z86.711 Personal history of pulmonary embolism; Z86.718 Personal history of other venous thrombosis and embolism; Z87.891 Personal history of nicotine dependence; Z95.5 Presence of coronary angioplasty implant and graft; Z89.511 Acquired absence of right leg below knee; Z89.512 Acquired absence of left leg below knee; Z90.5 Acquired absence of kidney
CPT/HCPCS: 31500; 36600; 36620; 71010; 71045; 71250; 71275; 74176; 80048; 80048 91; 80053; 80069; 80076; 80202; 81003; 82271; 82272; 82570; 82607; 82746; 82803; 82948; 83010 90; 83520 90; 83605; 83615; 83690; 83735; 83880; 84100; 84145 90; 84300; 84478; 84484; 85014; 85018; 85025; 85025 91; 85027; 85384; 85610; 85730; 86021 90; 86038; 86141; 86160; 86162 90; 86713 90; 86850; 86900; 86901; 86920; 87040; 87070; 87077; 87081; 87086; 87102; 87106; 87116; 87147; 87186; 87205; 87206; 87278; 87449; 87493; 87641; 87801; 88108; 93005; 93306; 94002; 94003; 94640; 94640 76; 94667; 94668; 94760; 94799; 97530 GO; 97530 GP; 99202; 99281; 99284; C1751; C1788; C9113; G0378; J0456; J0690; J0692; J1450; J1644; J1815; J1885; J1940; J1956; J2020; J2185; J2248; J2250; J2270; J2405; J2543; J2704; J2920; J2930; J3010; J3370; J3480; J7030; J7040; J7050; J7070; J7120; J7509; P9016; P9045; P9047